=== PATIENT | male | born 1960 | race Caucasian/White ===

== ENCOUNTER 2019-06-29 10:16 | Outpatient (CLI) | payer OTHER ==
[2019-06-29 11:00] LABS: BASOPHILS % (AUTO) 0.7 % (0-1); CLARITY,URINE CLEAR (Clear); COLOR,URINE YELLOW (Yellow); EOSINOPHILS # (AUTO) 0.1 X10'3 (0-0.9); EOSINOPHILS % (AUTO) 1.9 % (0-6); GLUCOSE, URINE NEGATIVE (Neg); HEMATOCRIT 47.3 % (42.0-52.0); HEMOGLOBIN 15.6 g/dl (14.0-17.9); KETONES,URINE NEGATIVE (Neg); LEUKOCYTE ESTERASE ,URINE NEGATIVE (Neg); LYMPHOCYTES # (AUTO) 1.5 X10'3 (1.1-4.8); LYMPHOCYTES % (AUTO) 26.1 % (21-51); MEAN CORPUSCULAR HEMOGLOBIN 28.9 PG (27.0-31.0); MEAN CORPUSCULAR VOLUME 87.3 FL (78-98); MEAN PLATELET VOLUME 8.3 FL (7.4-10.4); MONOCYTES # (AUTO) 0.5 X10'3 (0-0.9); NEUTROPHILS # (AUTO) 3.7 X10'3 (1.8-7.7); NEUTROPHILS % (AUTO) 63.3 % (42-75); NITRITES, URINE NEGATIVE (Neg); OCCULT BLOOD,URINE NEGATIVE (Neg); PH,URINE 6.5 (4.8-8.0); PLATELET COUNT 243 X10'3 (140-440); PROTEIN,URINE NEGATIVE (Neg); RED BLOOD COUNT 5.42 X10'6 (4.70-6.10); RED CELL DISTRIBUTION WIDTH 14.3 % (11.5-14.5); UROBILINOGEN,URINE 0.2 E.U/dL (0.2-1.0); WHITE BLOOD COUNT 5.9 X10'3 (4.5-11.0)
[2019-06-29 11:06] LABS: UA COLLECTION TYPE CLN CATCH MIDSTREAM
[2019-06-29 11:18] LABS: ALANINE AMINOTRANSFERASE 42 U/L (12-78); ALBUMIN/GLOBULIN RATIO 1.1 (1.1-1.5); ALKALINE PHOSPHATASE 48 IU/L (46-116); ANION GAP 6 (8-16); ASPARTATE AMINO TRANSFERASE 32 U/L (10-37); BILIRUBIN,TOTAL 0.8 MG/DL (0.1-1.0); BLOOD UREA NITROGEN 33 MG/DL (7-18); BUN/CREATININE RATIO 15.6 (5.4-32.0); CALCIUM 9.3 MG/DL (8.5-10.1); CHLORIDE 106 MMOL/L (99-107); CHOL/HDL RATIO 7.5 (0.00-4.99); CHOLESTEROL 210 MG/DL (0-200); CREATININE 2.11 MG/DL (0.60-1.10); GLUCOSE 107 MG/DL (70-104); HDL CHOLESTEROL 28 MG/DL (35-60); LDL CHOLESTEROL 129 MG/DL (50-100); SODIUM 143 MMOL/L (135-145); TOTAL CARBON DIOXIDE 30.6 MMOL/L (24-32); TOTAL PROTEIN 7.7 G/DL (6.4-8.2); TRIGLYCERIDES 251 MG/DL (20-135); eGFR 32 ML/MIN
[2019-06-30 08:08] LABS: % FREE PSA 35.6 % (.); PSA, FREE 0.32 ng/mL
== END 2019-06-29 23:00 | disposition home or self-care (01) ==
LOC: LAB 10:16
PROVIDERS: ATTEND Family Medicine
DX: Z12.5 Encounter for screening for malignant neoplasm of prostate (principal); E78.1 Pure hyperglyceridemia; J30.2 Other seasonal allergic rhinitis; G47.30 Sleep apnea, unspecified; G47.62 Sleep related leg cramps; I10 Essential (primary) hypertension; N20.0 Calculus of kidney; H04.123 Dry eye syndrome of bilateral lacrimal glands; Z68.34 Body mass index [BMI] 34.0-34.9, adult
CPT/HCPCS: 36415; 80053; 80061; 81003; 84153; 84154; 84439; 84443; 85025

== ENCOUNTER 2019-07-13 09:41 | Outpatient (CLI) | payer OTHER ==
[2019-07-13 10:38] LABS: ALANINE AMINOTRANSFERASE 38 U/L (12-78); ALBUMIN 3.9 G/DL (3.4-5.0); ALBUMIN/GLOBULIN RATIO 1.1 (1.1-1.5); ALKALINE PHOSPHATASE 45 IU/L (46-116); ANION GAP 6 (8-16); ASPARTATE AMINO TRANSFERASE 31 U/L (10-37); BILIRUBIN,TOTAL 0.7 MG/DL (0.1-1.0); BLOOD UREA NITROGEN 34 MG/DL (7-18); CALCIUM 8.9 MG/DL (8.5-10.1); CHLORIDE 103 MMOL/L (99-107); CREATININE 2.13 MG/DL (0.60-1.10); GLUCOSE 91 MG/DL (70-104); POTASSIUM 3.6 MMOL/L (3.5-5.1); SODIUM 139 MMOL/L (135-145); TOTAL CARBON DIOXIDE 30.2 MMOL/L (24-32); TOTAL PROTEIN 7.3 G/DL (6.4-8.2); eGFR 32 ML/MIN
[2019-07-13 10:41] LABS: HEMOGLOBIN A1C 5.8 % (4.5-6.2)
[2019-07-13 10:58] LABS: TOTAL PROTEIN,URINE RANDOM < 6.0 MG/DL
== END 2019-07-13 23:59 | disposition home or self-care (01) ==
LOC: LAB 09:41
PROVIDERS: ATTEND Family Medicine
DX: E78.1 Pure hyperglyceridemia (principal); R79.89 Other specified abnormal findings of blood chemistry; R73.09 Other abnormal glucose
CPT/HCPCS: 36415; 80053; 82570; 83036; 84156

== ENCOUNTER 2019-08-11 16:17 | Emergency (ER) | payer OTHER ==
[~2019-08-11] VITALS: Ht 180.3 cm; Wt 113.6 kg
[2019-08-11 16:19] VITALS: BP 163/103
[2019-08-11] MEDS ORDERED: ibuprofen tablet 400 MG TABLET PO ONE (16:50)
== END 2019-08-11 17:06 | disposition home or self-care (01) ==
LOC: ER 16:17
DX: S20.211A Contusion of right front wall of thorax, initial encounter (principal); Z88.8 Allergy status to other drugs, medicaments and biological substances; Y00.XXXA Assault by blunt object, initial encounter; Y93.89 Activity, other specified; Y92.69 Other specified industrial and construction area as the place of occurrence of the external cause; Y99.9 Unspecified external cause status
CPT/HCPCS: 99282

== ENCOUNTER 2019-08-19 21:35 | Emergency (ER) | payer OTHER ==
[~2019-08-19] VITALS: Ht 180.3 cm; Wt 113.6 kg
[2019-08-19 21:37] VITALS: BP 174/95
[2019-08-19] MEDS ORDERED: acetaminophen 325mg tablet PO ONE (21:55)
== END 2019-08-19 22:01 | disposition home or self-care (01) ==
LOC: ER 21:35
DX: S43.402A Unspecified sprain of left shoulder joint, initial encounter (principal); X58.XXXA Exposure to other specified factors, initial encounter; Y93.89 Activity, other specified; Y92.89 Other specified places as the place of occurrence of the external cause; Y99.8 Other external cause status
CPT/HCPCS: 99282; 99285

== ENCOUNTER 2019-08-31 23:05 | Emergency (ER) | payer BC, OTHER ==
[~2019-08-31] VITALS: Ht 180.3 cm; Wt 113.6 kg
[2019-09-01] MEDS ORDERED: DOXY100C43 PO (00:09)
[2019-09-01 00:15] VITALS: BP 133/80
== END 2019-09-01 00:44 | disposition home or self-care (01) ==
LOC: ER 23:05
DX: L03.818 Cellulitis of other sites (principal); L97.819 Non-pressure chronic ulcer of other part of right lower leg with unspecified severity; R60.0 Localized edema; E78.00 Pure hypercholesterolemia, unspecified; Z86.718 Personal history of other venous thrombosis and embolism; Z79.2 Long term (current) use of antibiotics
CPT/HCPCS: 99283

== ENCOUNTER 2019-10-03 12:26 | Inpatient (IN) | payer BC, OTHER ==
[~2019-10-03] VITALS: Ht 180.3 cm; Wt 118.4 kg
--- NOTE | 2019-10-03 12:42 | NUR ---
pt has a healing ulcer on the posterior right calf
[2019-10-03 13:09] LABS: BASOPHILS # (AUTO) 0.1 X10'3 (0-0.2); BASOPHILS % (AUTO) 0.6 % (0-1); EOSINOPHILS # (AUTO) 0.1 X10'3 (0-0.9); HEMATOCRIT 46.7 % (42.0-52.0); HEMOGLOBIN 15.3 g/dl (14.0-17.9); LYMPHOCYTES # (AUTO) 2.3 X10'3 (1.1-4.8); LYMPHOCYTES % (AUTO) 25.5 % (21-51); MEAN CORPUSCULAR HGB CONC 32.7 g/dL (33.0-36.5); MEAN CORPUSCULAR VOLUME 88.6 FL (78-98); MEAN PLATELET VOLUME 8.6 FL (7.4-10.4); MONOCYTES % (AUTO) 11.5 % (2-12); NEUTROPHILS # (AUTO) 5.6 X10'3 (1.8-7.7); NEUTROPHILS % (AUTO) 61.4 % (42-75); PLATELET COUNT 265 X10'3 (140-440); RED BLOOD COUNT 5.27 X10'6 (4.70-6.10); RED CELL DISTRIBUTION WIDTH 14.9 % (11.5-14.5); WHITE BLOOD COUNT 9.1 X10'3 (4.5-11.0)
[2019-10-03 13:15] LABS: ALANINE AMINOTRANSFERASE 99 U/L (12-78); ALKALINE PHOSPHATASE 50 IU/L (46-116); ANION GAP 13 (8-16); ASPARTATE AMINO TRANSFERASE 77 U/L (10-37); BILIRUBIN,TOTAL 0.8 MG/DL (0.1-1.0); BLOOD UREA NITROGEN 30 MG/DL (7-18); CALCIUM 8.7 MG/DL (8.5-10.1); CHLORIDE 106 MMOL/L (99-107); GLUCOSE 170 MG/DL (70-104); POTASSIUM 4.1 MMOL/L (3.5-5.1); SODIUM 142 MMOL/L (135-145); TOTAL CARBON DIOXIDE 23.3 MMOL/L (24-32); eGFR 27 ML/MIN
[2019-10-03] MEDS ORDERED: aspirin 81mg tab.chew PO ONE (14:30)
[2019-10-03] MEDS ORDERED: enoxaparin 100mg/ml syringe SUBCUT ONE (14:50)
[2019-10-03] MEDS ORDERED: heparin 25,000 UNIT/250ml bag 250 ML IV SCH (14:52)
[2019-10-03] MEDS ORDERED: heparin 10,000 units/1 ML INJ IV ONE (14:55)
[2019-10-03] MEDS ORDERED: heparin 10,000 units/1 ML INJ IV PRN (14:55)
[2019-10-03] MEDS ORDERED: mag hydrox/Alum hydrox/simeth 30ml oral suspension PO PRN (15:05)
[2019-10-03] MEDS ORDERED: acetaminophen 325mg tablet PO PRN ×2 (15:05)
[2019-10-03] MEDS ORDERED: HYDROcodone/acetaminophen 5mg/325mg tablet PO PRN (15:05)
[2019-10-03] MEDS ORDERED: morphine 2 MG/ML inj. syringe IV PRN ×2 (15:05)
[2019-10-03] MEDS ORDERED: ondansetron/PF 4mg/2ml inj IV PRN (15:05)
[2019-10-03] MEDS ORDERED: magnesium hydroxide 30ml (MOM) UD suspension PO PRN (15:05)
[2019-10-03 15:07] LABS: PARTIAL THROMBOPLASTIN TIME 31 SECONDS (22-32)
--- NOTE | 2019-10-03 15:12 | NUR ---
Pt transported to Scan via [facility] with [employer].
[2019-10-03] MEDS ORDERED: CETI10TA18 PO (15:20)
[2019-10-03] MEDS ORDERED: FENO145T25 PO (15:20)
[2019-10-03] MEDS ORDERED: ASPI-109 PO (15:20)
[2019-10-03] MEDS ORDERED: OLOP2.5D6 EACHEYE (15:20)
[2019-10-03] MEDS ORDERED: FURO40TA4 PO (15:20)
[2019-10-03] MEDS ORDERED: OLME1TAB84 PO (15:20)
[2019-10-03] MEDS ORDERED: LABE300T2 PO (15:20)
[2019-10-03] MEDS ORDERED: OMEG-79 PO (15:20)
--- NOTE | 2019-10-03 16:34 | NUR ---
informed Dr. Avery of poss PE. offically report is pending. heparin was dc before given and Bennie is aware.
[2019-10-03 16:46] LABS: BASOPHILS # (AUTO) 0.1 X10'3 (0-0.2); BASOPHILS % (AUTO) 0.6 % (0-1); EOSINOPHILS % (AUTO) 0.3 % (0-6); HEMATOCRIT 41.7 % (42.0-52.0); LYMPHOCYTES # (AUTO) 1.9 X10'3 (1.1-4.8); LYMPHOCYTES % (AUTO) 22.9 % (21-51); MEAN CORPUSCULAR HEMOGLOBIN 29.7 PG (27.0-31.0); MEAN CORPUSCULAR HGB CONC 33.6 g/dL (33.0-36.5); MEAN CORPUSCULAR VOLUME 88.2 FL (78-98); MEAN PLATELET VOLUME 8.1 FL (7.4-10.4); MONOCYTES # (AUTO) 0.6 X10'3 (0-0.9); NEUTROPHILS # (AUTO) 5.8 X10'3 (1.8-7.7); NEUTROPHILS % (AUTO) 69.2 % (42-75); PLATELET COUNT 232 X10'3 (140-440); RED BLOOD COUNT 4.72 X10'6 (4.70-6.10); RED CELL DISTRIBUTION WIDTH 14.7 % (11.5-14.5); WHITE BLOOD COUNT 8.4 X10'3 (4.5-11.0)
[2019-10-03] MEDS: apixaban 5mg tablet PO SCH (17:04)
--- NOTE | 2019-10-03 19:30 | NUR ---
Patient in room PCU 3020. I have received report from PRODUCTION SUPPLY EQUIPMENT TENDER and had the opportunity to ask questions and assume patient care.
[2019-10-03 19:50] VITALS: BP 134/90
[2019-10-03 23:00] VITALS: BP 123/89
[2019-10-04 02:21] LABS: BASOPHILS # (AUTO) 0.1 X10'3 (0-0.2); BASOPHILS % (AUTO) 0.8 % (0-1); EOSINOPHILS # (AUTO) 0.1 X10'3 (0-0.9); HEMOGLOBIN 13.9 g/dl (14.0-17.9); LYMPHOCYTES # (AUTO) 2.4 X10'3 (1.1-4.8); LYMPHOCYTES % (AUTO) 29.6 % (21-51); MEAN CORPUSCULAR HEMOGLOBIN 29.6 PG (27.0-31.0); MEAN CORPUSCULAR HGB CONC 33.8 g/dL (33.0-36.5); MEAN CORPUSCULAR VOLUME 87.8 FL (78-98); MEAN PLATELET VOLUME 8.2 FL (7.4-10.4); MONOCYTES # (AUTO) 0.8 X10'3 (0-0.9); MONOCYTES % (AUTO) 9.6 % (2-12); NEUTROPHILS # (AUTO) 4.8 X10'3 (1.8-7.7); PLATELET COUNT 247 X10'3 (140-440); RED BLOOD COUNT 4.67 X10'6 (4.70-6.10); RED CELL DISTRIBUTION WIDTH 14.3 % (11.5-14.5); WHITE BLOOD COUNT 8.1 X10'3 (4.5-11.0)
[2019-10-04 02:39] LABS: ALBUMIN 3.2 G/DL (3.4-5.0); ANION GAP 8 (8-16); BLOOD UREA NITROGEN 32 MG/DL (7-18); BUN/CREATININE RATIO 13.7 (5.4-32.0); CALCIUM 7.8 MG/DL (8.5-10.1); CHLORIDE 108 MMOL/L (99-107); CHOL/HDL RATIO 8.2 (0.00-4.99); CHOLESTEROL 164 MG/DL (0-200); CREATININE 2.33 MG/DL (0.60-1.10); GLUCOSE 120 MG/DL (70-104); HDL CHOLESTEROL 20 MG/DL (35-60); LDL CHOLESTEROL 106 MG/DL (50-100); POTASSIUM 3.6 MMOL/L (3.5-5.1); SODIUM 140 MMOL/L (135-145); TOTAL CARBON DIOXIDE 24.4 MMOL/L (24-32); TRIGLYCERIDES 225 MG/DL (20-135); eGFR 29 ML/MIN
[2019-10-04 02:41] LABS: HEMOGLOBIN A1C 6.3 % (4.5-6.2)
[2019-10-04 03:00] VITALS: BP 115/72
[2019-10-04 06:00] VITALS: BP 147/77
--- NOTE | 2019-10-04 06:10 | NUR ---
Patient in room PCU 3023. I have received report from Herman CARPENTER and had the opportunity to ask questions and assume patient care.
--- NOTE | 2019-10-04 06:14 | NUR ---
Problems reprioritized. Patient report given, questions answered & plan of care reviewed with Osvaldo CARPENTER.
--- NOTE | 2019-10-04 06:16 | NUR ---
Patient in room PCU 3023. I have received report from Herman CARPENTER and had the opportunity to ask questions and assume patient care.
[2019-10-04] MEDS: apixaban 5mg tablet PO SCH ×2 (08:15→20:22)
[2019-10-04] MEDS: furosemide 20 MG/2 ML vial IV SCH ×2 (08:15→20:22)
[2019-10-04 11:00] VITALS: BP 117/78
--- NOTE | 2019-10-04 14:43 | NUR ---
Paged Dr. Avery of [facility] ultrasound result recently obtained. [id number]. Omar Saenz. [facility] Ultrasound result. DVT present. Thank you. Reymundo CARPENTER x [phone]
[2019-10-04 15:00] VITALS: BP 126/78
--- NOTE | 2019-10-04 18:00 | NUR ---
Orientee documentation: I have reviewed and agree with all interventions, assessments performed and documented by Reymundo Landry RN.
--- NOTE | 2019-10-04 18:15 | NUR ---
Problems reprioritized. Patient report given, questions answered & plan of care reviewed with Herman RN.
--- NOTE | 2019-10-04 18:15 | NUR ---
Problems reprioritized. Patient report given, questions answered & plan of care reviewed with Herman RN.
[2019-10-04 19:00] VITALS: BP 131/88
[2019-10-04 23:07] VITALS: BP 136/91
[2019-10-05] VITALS (11 sets, daily range): BP systolic 120–148; BP diastolic 75–96
[2019-10-05 05:27] LABS: BASOPHILS # (AUTO) 0.1 X10'3 (0-0.2); BASOPHILS % (AUTO) 0.7 % (0-1); EOSINOPHILS # (AUTO) 0.1 X10'3 (0-0.9); EOSINOPHILS % (AUTO) 0.7 % (0-6); HEMATOCRIT 41.9 % (42.0-52.0); LYMPHOCYTES # (AUTO) 2.5 X10'3 (1.1-4.8); LYMPHOCYTES % (AUTO) 23.4 % (21-51); MEAN CORPUSCULAR HEMOGLOBIN 29.3 PG (27.0-31.0); MEAN CORPUSCULAR HGB CONC 33.5 g/dL (33.0-36.5); MEAN CORPUSCULAR VOLUME 87.5 FL (78-98); MEAN PLATELET VOLUME 8.8 FL (7.4-10.4); MONOCYTES # (AUTO) 0.9 X10'3 (0-0.9); NEUTROPHILS % (AUTO) 66.2 % (42-75); PLATELET COUNT 265 X10'3 (140-440); RED BLOOD COUNT 4.79 X10'6 (4.70-6.10); RED CELL DISTRIBUTION WIDTH 14.3 % (11.5-14.5); WHITE BLOOD COUNT 10.5 X10'3 (4.5-11.0)
[2019-10-05 05:43] LABS: ALBUMIN 3.3 G/DL (3.4-5.0); ANION GAP 10 (8-16); BLOOD UREA NITROGEN 32 MG/DL (7-18); BUN/CREATININE RATIO 13.2 (5.4-32.0); CHLORIDE 104 MMOL/L (99-107); CREATININE 2.42 MG/DL (0.60-1.10); GLUCOSE 112 MG/DL (70-104); POTASSIUM 3.8 MMOL/L (3.5-5.1); SODIUM 140 MMOL/L (135-145); TOTAL CARBON DIOXIDE 26.2 MMOL/L (24-32); eGFR 28 ML/MIN
--- NOTE | 2019-10-05 06:20 | NUR ---
Patient in room PCU 3023. I have received report from Herman CARPENTER and had the opportunity to ask questions and assume patient care.
--- NOTE | 2019-10-05 06:27 | NUR ---
Problems reprioritized. Patient report given, questions answered & plan of care reviewed with Osvaldo CARPENTER.
--- NOTE | 2019-10-05 06:35 | NUR ---
Patient in room PCU 3023. I have received report from JANE CARPENTER and had the opportunity to ask questions and assume patient care.
[2019-10-05] MEDS: furosemide 20 MG/2 ML vial IV SCH (08:04)
[2019-10-05] MEDS: apixaban 5mg tablet PO SCH ×2 (08:04→20:34)
[2019-10-05] MEDS ORDERED: ipratropium/albuterol 3ml nebule NEB STA (12:20)
[2019-10-05] MEDS ORDERED: budesonide 0.5mg/2ml UD nebule IH ONE (12:20)
[2019-10-05] MEDS ORDERED: normal saline 1000ml 1,000 ML IV SCH (12:35)
--- NOTE | 2019-10-05 12:54 | NUR ---
Paged Dr. Heard for clarification on NS order. PAGER ID: [phone] MESSAGE: [phone]. Robert. Alexei Nelson for clarification about the NS order. Run the NS @500mL/hr q2hr. Reymundo CARPENTER x [phone] Addendum: 10/05/19 at 1256 by Reymundo Landry RN called back. order clarified.
--- NOTE | 2019-10-05 15:04 | NUR ---
Report called to ICU, Art RN. Allowed ICU nurse to ask questions concerning Pt's care and course/plan of care. Pt's belongings will be transferred with Pt to ICU room: 2046
[2019-10-05] MEDS ORDERED: tPA-cathflo 2mg/2ml IV flush 10 MG in normal saline 100ml IV soln 40 ML ICATH ONE (16:30)
[2019-10-05 16:54] LABS: PLATELET COUNT 272 X10'3 (140-440)
[2019-10-05] MEDS: ipratropium/albuterol 3ml nebule NEB SCH ×2 (16:59→21:06)
[2019-10-05] MEDS ORDERED: ALTEPLASE 100 MG/100 ML IV SCH (17:00)
--- NOTE | 2019-10-05 17:28 | NUR ---
aTP started at 1730. Medication is to run for 24 hours maximum time.
[2019-10-05 17:58] LABS: D-DIMER 2.92 MG/L FEU (0-0.50); PARTIAL THROMBOPLASTIN TIME 30 SECONDS (22-32)
--- NOTE | 2019-10-05 18:15 | NUR ---
Patient in room ICU 2046. I have received report from Art RN and had the opportunity to ask questions and assume patient care. Patient is A&O but a little restless. Tachypneic with O2 in the high 80's-low 90's. Receiving supplemental O2 along with tPA. Will continue to monitor.
[2019-10-05 20:05] LABS: PLATELET COUNT 278 X10'3 (140-440)
[2019-10-05 20:15] LABS: D-DIMER 3.54 MG/L FEU (0-0.50); PARTIAL THROMBOPLASTIN TIME 29 SECONDS (22-32)
[2019-10-05] MEDS: methylPREDNISolone sod succ/PF 40mg inj. IV SCH (20:34)
[2019-10-05] MEDS: HYDROcodone/acetaminophen 10/325mg tab PO PRN (23:13)
[2019-10-05 23:45] LABS: PLATELET COUNT 268 X10'3 (140-440)
[2019-10-05 23:57] LABS: D-DIMER 9.38 MG/L FEU (0-0.50); PARTIAL THROMBOPLASTIN TIME 30 SECONDS (22-32)
[2019-10-06] VITALS (21 sets, daily range): BP systolic 121–154; BP diastolic 74–101
[2019-10-06] MEDS ORDERED: TPA CATHFLO IVF SCH (01:00)
[2019-10-06] MEDS ORDERED: FLUSH 6 MG IVF SCH (01:00)
[2019-10-06] MEDS ORDERED: NORMAL SALINE IVF SCH (01:00)
[2019-10-06 03:53] LABS: BASOPHILS % (AUTO) 0.1 % (0-1); EOSINOPHILS % (AUTO) 0.2 % (0-6); HEMATOCRIT 42.6 % (42.0-52.0); HEMOGLOBIN 14.1 g/dl (14.0-17.9); LYMPHOCYTES # (AUTO) 2.2 X10'3 (1.1-4.8); MEAN CORPUSCULAR HEMOGLOBIN 29.2 PG (27.0-31.0); MEAN CORPUSCULAR HGB CONC 33.1 g/dL (33.0-36.5); MEAN CORPUSCULAR VOLUME 88.2 FL (78-98); MEAN PLATELET VOLUME 9.2 FL (7.4-10.4); MONOCYTES # (AUTO) 0.2 X10'3 (0-0.9); MONOCYTES % (AUTO) 2.1 % (2-12); NEUTROPHILS # (AUTO) 6.6 X10'3 (1.8-7.7); NEUTROPHILS % (AUTO) 73.6 % (42-75); PLATELET COUNT 268 X10'3 (140-440); RED BLOOD COUNT 4.83 X10'6 (4.70-6.10); RED CELL DISTRIBUTION WIDTH 14.9 % (11.5-14.5)
[2019-10-06 03:56] LABS: ALBUMIN 3.1 G/DL (3.4-5.0); ANION GAP 12 (8-16); BLOOD UREA NITROGEN 38 MG/DL (7-18); BUN/CREATININE RATIO 15.7 (5.4-32.0); CALCIUM 7.9 MG/DL (8.5-10.1); CHLORIDE 101 MMOL/L (99-107); CREATININE 2.42 MG/DL (0.60-1.10); GLUCOSE 159 MG/DL (70-104); POTASSIUM 3.8 MMOL/L (3.5-5.1); SODIUM 136 MMOL/L (135-145); TOTAL CARBON DIOXIDE 22.6 MMOL/L (24-32); eGFR 28 ML/MIN
[2019-10-06 04:13] LABS: PARTIAL THROMBOPLASTIN TIME 31 SECONDS (22-32)
[2019-10-06 04:24] LABS: PLATELET COUNT 268 X10'3 (140-440)
[2019-10-06 05:17] LABS: CLARITY,URINE CLEAR (Clear); COLOR,URINE YELLOW (Yellow); GLUCOSE, URINE NEGATIVE (Neg); KETONES,URINE NEGATIVE (Neg); LEUKOCYTE ESTERASE ,URINE NEGATIVE (Neg); NITRITES, URINE NEGATIVE (Neg); OCCULT BLOOD,URINE TRACE-LYSED (Neg); PH,URINE 5.5 (4.8-8.0); PROTEIN,URINE 100 mg/dl (Neg)
[2019-10-06 05:24] LABS: UA COLLECTION TYPE NON-SPECIFIED
[2019-10-06 05:25] LABS: BACTERIA,URINE FEW /HPF (Neg); RBC,URINE 0-2 /HPF (0-2); SQUAMOUS EPITHELIAL CELL,UR FEW /LPF (FEW); WBC,URINE NONE SEEN /HPF (0-4)
[2019-10-06 05:31] LABS: TOTAL PROTEIN,URINE RANDOM 125.1 MG/DL
[2019-10-06 05:50] LABS: UA EOSINOPHILS NO EOS /HPF
[2019-10-06 08:30] LABS: PLATELET COUNT 225 X10'3 (140-440)
[2019-10-06] MEDS: methylPREDNISolone sod succ/PF 40mg inj. IV SCH ×3 (08:43→20:49)
[2019-10-06 08:52] LABS: PARTIAL THROMBOPLASTIN TIME 25 SECONDS (22-32)
[2019-10-06 08:54] LABS: D-DIMER > 35.20 MG/L FEU (0-0.50)
[2019-10-06] MEDS: budesonide 0.5mg/2ml UD nebule IH SCH ×3 (10:17→20:44)
[2019-10-06] MEDS: ipratropium/albuterol 3ml nebule NEB SCH ×3 (10:17→20:43)
[2019-10-06 11:58] LABS: PLATELET COUNT 243 X10'3 (140-440)
[2019-10-06 12:38] LABS: D-DIMER 27.46 MG/L FEU (0-0.50); PARTIAL THROMBOPLASTIN TIME 27 SECONDS (22-32)
[2019-10-06 16:11] LABS: PLATELET COUNT 261 X10'3 (140-440)
[2019-10-06 16:18] LABS: D-DIMER 21.85 MG/L FEU (0-0.50); PARTIAL THROMBOPLASTIN TIME 29 SECONDS (22-32)
[2019-10-06] MEDS ORDERED: tPA-cathflo 2 MG/2 ml IV flush IVF ONE (17:20)
[2019-10-06] MEDS ORDERED: TPA CATHFLO IVF ONE (17:35)
[2019-10-06] MEDS ORDERED: NORMAL SALINE IVF ONE (17:35)
[2019-10-06] MEDS ORDERED: FLUSH 6 MG IVF ONE (17:35)
--- NOTE | 2019-10-06 18:07 | NUR ---
Patient in room ICU 2046. I have received report from Robby CARPENTER and had the opportunity to ask questions and assume patient care.
[2019-10-06 19:40] LABS: D-DIMER 19.58 MG/L FEU (0-0.50); PARTIAL THROMBOPLASTIN TIME 24 SECONDS (22-32)
[2019-10-06 19:45] LABS: PLATELET COUNT 266 X10'3 (140-440)
[2019-10-06 23:35] LABS: PLATELET COUNT 274 X10'3 (140-440)
[2019-10-06 23:50] LABS: PARTIAL THROMBOPLASTIN TIME 24 SECONDS (22-32)
[2019-10-07] VITALS (20 sets, daily range): BP systolic 129–166; BP diastolic 66–109
[2019-10-07 03:47] LABS: BASOPHILS % (AUTO) 0.1 % (0-1); EOSINOPHILS % (AUTO) 0 % (0-6); HEMATOCRIT 40.6 % (42.0-52.0); HEMOGLOBIN 13.3 g/dl (14.0-17.9); LYMPHOCYTES % (AUTO) 17.1 % (21-51); MEAN CORPUSCULAR HEMOGLOBIN 28.9 PG (27.0-31.0); MEAN CORPUSCULAR HGB CONC 32.9 g/dL (33.0-36.5); MEAN CORPUSCULAR VOLUME 87.9 FL (78-98); MONOCYTES # (AUTO) 0.5 X10'3 (0-0.9); MONOCYTES % (AUTO) 3.9 % (2-12); NEUTROPHILS # (AUTO) 9.1 X10'3 (1.8-7.7); NEUTROPHILS % (AUTO) 78.9 % (42-75); PLATELET COUNT 273 X10'3 (140-440); RED BLOOD COUNT 4.62 X10'6 (4.70-6.10); RED CELL DISTRIBUTION WIDTH 14.1 % (11.5-14.5); WHITE BLOOD COUNT 11.6 X10'3 (4.5-11.0)
[2019-10-07 03:51] LABS: PLATELET COUNT 273 X10'3 (140-440)
[2019-10-07 03:56] LABS: ALBUMIN 3.1 G/DL (3.4-5.0); ANION GAP 11 (8-16); BLOOD UREA NITROGEN 37 MG/DL (7-18); BUN/CREATININE RATIO 19.4 (5.4-32.0); CALCIUM 8.2 MG/DL (8.5-10.1); CHLORIDE 102 MMOL/L (99-107); CREATININE 1.91 MG/DL (0.60-1.10); GLUCOSE 207 MG/DL (70-104); POTASSIUM 3.6 MMOL/L (3.5-5.1); SODIUM 136 MMOL/L (135-145); TOTAL CARBON DIOXIDE 23.2 MMOL/L (24-32); eGFR 36 ML/MIN
[2019-10-07 04:00] LABS: D-DIMER 9.67 MG/L FEU (0-0.50); PARTIAL THROMBOPLASTIN TIME 26 SECONDS (22-32)
--- NOTE | 2019-10-07 06:18 | NUR ---
Problems reprioritized. Patient report given, questions answered & plan of care reviewed with Ana CARPENTER.
--- NOTE | 2019-10-07 06:29 | NUR ---
Patient in room ICU 2046. I have received report from Ivan CARPENTER and had the opportunity to ask questions and assume patient care.
[2019-10-07] MEDS: budesonide 0.5mg/2ml UD nebule IH SCH ×3 (08:00→20:48)
[2019-10-07] MEDS: methylPREDNISolone sod succ/PF 40mg inj. IV SCH ×3 (08:51→20:05)
[2019-10-07] MEDS ORDERED: heparin 10,000 units/1 ML INJ IV PRN (09:00)
[2019-10-07] MEDS: HYDROcodone/acetaminophen 10/325mg tab PO PRN (09:10)
[2019-10-07] MEDS: ipratropium/albuterol 3ml nebule NEB SCH ×3 (09:18→20:48)
[2019-10-07] MEDS: heparin 25,000 UNIT/250ml bag 250 ML IV SCH ×3 (09:35→21:37)
--- NOTE | 2019-10-07 16:55 | NUR ---
Patient in room ICU 2046. I have received report from Ana CARPENTER and had the opportunity to ask questions and assume patient care.
--- NOTE | 2019-10-07 18:38 | NUR ---
Problems reprioritized. Patient report given, questions answered & plan of care reviewed with Bhavik CARPENTER.
--- NOTE | 2019-10-07 18:40 | NUR ---
Patient in room PCU 3021. I have received report from JAYDEN PEÑA and had the opportunity to ask questions and assume patient care. PATIENT HAS HEPARIN GTT INFUSING AT 2400 UNITS/HR PER DVT PROTOCOL/ PROVIDER ORDER. PATIENT ON 2L NC. WILL CONTINUE TO MONITOR CLOSELY.
[2019-10-08 03:00] VITALS: BP 125/76
[2019-10-08 03:53] LABS: BASOPHILS % (AUTO) 0.1 % (0-1); EOSINOPHILS % (AUTO) 0 % (0-6); HEMATOCRIT 38.8 % (42.0-52.0); HEMOGLOBIN 12.9 g/dl (14.0-17.9); LYMPHOCYTES # (AUTO) 2.1 X10'3 (1.1-4.8); LYMPHOCYTES % (AUTO) 13.5 % (21-51); MEAN CORPUSCULAR HEMOGLOBIN 29.4 PG (27.0-31.0); MEAN CORPUSCULAR HGB CONC 33.2 g/dL (33.0-36.5); MEAN CORPUSCULAR VOLUME 88.3 FL (78-98); MEAN PLATELET VOLUME 8.9 FL (7.4-10.4); MONOCYTES # (AUTO) 0.7 X10'3 (0-0.9); MONOCYTES % (AUTO) 4.9 % (2-12); NEUTROPHILS # (AUTO) 12.5 X10'3 (1.8-7.7); NEUTROPHILS % (AUTO) 81.5 % (42-75); PLATELET COUNT 283 X10'3 (140-440); RED CELL DISTRIBUTION WIDTH 14.7 % (11.5-14.5); WHITE BLOOD COUNT 15.3 X10'3 (4.5-11.0)
[2019-10-08 04:02] LABS: ALBUMIN 3.1 G/DL (3.4-5.0); ANION GAP 8 (8-16); BLOOD UREA NITROGEN 38 MG/DL (7-18); CALCIUM 8.1 MG/DL (8.5-10.1); CHLORIDE 105 MMOL/L (99-107); GLUCOSE 197 MG/DL (70-104); POTASSIUM 3.8 MMOL/L (3.5-5.1); SODIUM 139 MMOL/L (135-145); TOTAL CARBON DIOXIDE 26.3 MMOL/L (24-32); eGFR 34 ML/MIN
--- NOTE | 2019-10-08 06:25 | NUR ---
Problems reprioritized. Patient report given, questions answered & plan of care reviewed with JAYDEN CURTIS. Addendum: 10/08/19 at 0626 by Christianne Floyd RN Problems reprioritized. Patient report given, questions answered & plan of care reviewed with JAYDEN PEÑA.
--- NOTE | 2019-10-08 06:30 | NUR ---
Patient in room PCU 3021. I have received report from JAYDEN Gutierres and had the opportunity to ask questions and assume patient care.
[2019-10-08 07:00] VITALS: BP 144/75
[2019-10-08] MEDS: methylPREDNISolone sod succ/PF 40mg inj. IV SCH ×3 (08:05→20:46)
[2019-10-08] MEDS: budesonide 0.5mg/2ml UD nebule IH SCH ×2 (08:57→21:56)
[2019-10-08] MEDS: ipratropium/albuterol 3ml nebule NEB SCH ×3 (08:57→21:56)
[2019-10-08] MEDS: heparin 25,000 UNIT/250ml bag 250 ML IV SCH ×4 (09:07→22:30)
--- NOTE | 2019-10-08 10:00 | NUR ---
PTT came back 98. Holding heparin for 60 minutes per protocol. Will decrease rate 2 units/kg/hr per protocol at 1100. Will continue to monitor closely.
[2019-10-08 11:00] VITALS: BP 147/76
[2019-10-08] MEDS: losartan 50mg tablet PO SCH (11:02)
[2019-10-08] MEDS: labetalol 100mg tablet PO SCH ×2 (11:02→20:00)
[2019-10-08] MEDS: HYDROcodone/acetaminophen 10/325mg tab PO PRN (13:08)
--- NOTE | 2019-10-08 13:46 | NUR ---
Initial: Pt admit w/ new DX PE, acute respiratory failure secondary to cor pulmonale, CKD, HTN, prediabetes A1C 6.3. Hx hyperlipidemia TG 225, HDL 20 and possible adverse side effects from anti-hyperlipidemic; to start Tricor 10/08 per EMR. PO mostly 100% avg heart healthy diet; double eggs at breakfast and double meats BIDLD added to meals given protein needs w/ R lower leg venous wound per WOC notes at 116kg. Will continue to monitor. Rec: 1. continue heart healthy diet 2. double eggs at breakfast; double meats BIDLD for wound needs w/ good PO 3. bowel care as needed 4. wt per rx Addendum: 10/08/19 at [address] Amended: Links added.
[2019-10-08 15:00] VITALS: BP 130/69
--- NOTE | 2019-10-08 18:28 | NUR ---
Problems reprioritized. Patient report given, questions answered & plan of care reviewed with JAYDEN Gutierres. Patient stable at transfer of care.
--- NOTE | 2019-10-08 18:30 | NUR ---
Patient in room PCU 3021. I have received report from JAYDEN PEÑA and had the opportunity to ask questions and assume patient care. PATIENT AWAKE FOR BEDSIDE REPORT. HEPARIN INFUSING AT 2100 UNITS/HR. PATIENT ON 3L NC WITH HUMIDIFIER PER PROVIDER ORDER. WILL CONTINUE TO MONITOR CLOSELY.
[2019-10-08 19:00] VITALS: BP 137/70
[2019-10-08 22:36] VITALS: BP 145/69
--- NOTE | 2019-10-09 02:00 | NUR ---
PTT AT 0150 WITH IN THERAPEUTIC RANGE AT 48. NO RATE CHANGE AT THIS TIME. HEPARIN GTT INFUSING AT 2100 UNITS/HR. NEXT DVT PTT AT 0800. WILL CONTINUE TO MONITOR CLOSELY.
[2019-10-09 02:10] VITALS: BP 139/74
--- NOTE | 2019-10-09 05:55 | NUR ---
HR 38. PER MD, WILL HOLD MORNING DOSE OF LABETALOL. DAY TIME HOSPITALIST TO REVIEW MEDICATION DOSING. [employer]LECT[employer] TOP HELPER STRIP PLACED IN CHART.
[2019-10-09 06:30] VITALS: BP 148/81
--- NOTE | 2019-10-09 06:31 | NUR ---
Problems reprioritized. Patient report given, questions answered & plan of care reviewed with JAYDEN BOURGEOIS.
--- NOTE | 2019-10-09 06:38 | NUR ---
Patient in room PCU 3021. I have received report from Bhavik CARPENTER and had the opportunity to ask questions and assume patient care.
[2019-10-09] MEDS ORDERED: fenofibrate 145mg tablet PO SCH (07:30)
[2019-10-09] MEDS ORDERED: OMEGA PO SCH (08:00)
[2019-10-09] MEDS ORDERED: FATTY ACIDS PO SCH (08:00)
[2019-10-09] MEDS ORDERED: FISH OIL PO SCH (08:00)
[2019-10-09] MEDS ORDERED: cetirizine 10mg tablet PO SCH (08:00)
[2019-10-09] MEDS ORDERED: apixaban 5mg tablet PO SCH (08:00)
[2019-10-09] MEDS: budesonide 0.5mg/2ml UD nebule IH SCH (08:06)
[2019-10-09] MEDS: ipratropium/albuterol 3ml nebule NEB SCH ×2 (08:06→15:34)
[2019-10-09] MEDS: losartan 50mg tablet PO SCH (08:09)
[2019-10-09] MEDS: methylPREDNISolone sod succ/PF 40mg inj. IV SCH ×2 (08:09→12:48)
[2019-10-09 08:35] LABS: BASOPHILS % (AUTO) 0.2 % (0-1); EOSINOPHILS % (AUTO) 0.1 % (0-6); HEMATOCRIT 39.4 % (42.0-52.0); HEMOGLOBIN 12.9 g/dl (14.0-17.9); LYMPHOCYTES # (AUTO) 2.7 X10'3 (1.1-4.8); LYMPHOCYTES % (AUTO) 18.7 % (21-51); MEAN CORPUSCULAR HEMOGLOBIN 29.1 PG (27.0-31.0); MEAN CORPUSCULAR HGB CONC 32.7 g/dL (33.0-36.5); MEAN CORPUSCULAR VOLUME 89.1 FL (78-98); MONOCYTES # (AUTO) 0.6 X10'3 (0-0.9); MONOCYTES % (AUTO) 4.5 % (2-12); NEUTROPHILS # (AUTO) 10.9 X10'3 (1.8-7.7); NEUTROPHILS % (AUTO) 76.5 % (42-75); PLATELET COUNT 304 X10'3 (140-440); RED BLOOD COUNT 4.42 X10'6 (4.70-6.10); RED CELL DISTRIBUTION WIDTH 14.7 % (11.5-14.5); WHITE BLOOD COUNT 14.2 X10'3 (4.5-11.0)
[2019-10-09 08:43] LABS: ALANINE AMINOTRANSFERASE 133 U/L (12-78); ALBUMIN/GLOBULIN RATIO 0.9 (1.1-1.5); ALKALINE PHOSPHATASE 43 IU/L (46-116); ANION GAP 2 (8-16); ASPARTATE AMINO TRANSFERASE 31 U/L (10-37); BILIRUBIN,TOTAL 0.6 MG/DL (0.1-1.0); BLOOD UREA NITROGEN 33 MG/DL (7-18); BUN/CREATININE RATIO 16.7 (5.4-32.0); CALCIUM 8.3 MG/DL (8.5-10.1); CHLORIDE 107 MMOL/L (99-107); CREATININE 1.98 MG/DL (0.60-1.10); GLUCOSE 162 MG/DL (70-104); POTASSIUM 4.4 MMOL/L (3.5-5.1); SODIUM 140 MMOL/L (135-145); TOTAL CARBON DIOXIDE 30.6 MMOL/L (24-32); TOTAL PROTEIN 6.2 G/DL (6.4-8.2); eGFR 35 ML/MIN
[2019-10-09 11:00] VITALS: BP 144/81
--- NOTE | 2019-10-09 11:12 | NUR ---
O2 Sat at rest on room air:_88__% If below 89%: Recovery O2 Sat at rest on _2__LPM:_95__%:___% via__nasal cannula (mask/nasal cannula, etc..) No further documentation is necessary. If O2 Sat did not drop below 89% on room air,ambulate patient on room air. O2 Sat while ambulating on room air:___% Recovery O2 Sat while ambulating on ___LPM:___% No further documentation is necessary. If patient does not drop below 89% while ambulating, he/she does not qualify for home O2.
[2019-10-09 15:00] VITALS: BP 145/78
[2019-10-09] MEDS ORDERED: APIX5TAB3 PO (15:05)
[2019-10-09] MEDS ORDERED: OLME40TA13 PO (15:05)
[2019-10-09] MEDS ORDERED: PRED20TA PO (15:05)
--- NOTE | 2019-10-09 17:37 | NUR ---
Per MD, patient stable for discharge home. Patient qualified for home O2 and O2 delivered to patient. Patient educated to make followup appt with Dr Dean Inman in 3 months, office phone number given to patient. Wound care and wound care pictures done prior to discharge and patient given extra optifoams and cleanser for leg wound. Patient notified me at 1645 that he had received a text earlier in the day from his pharmacy that they were waiting for insurance to approve his new prescriptions. Since I was unaware of this earlier in the day, unable to reach out to case management while they were still here to address possible med insurance issues. Spoke to rn hemodialysis charge and told patient that if he does have issues at the pharmacy to please call us so that we can get case management involved right away in the morning in order to get him his medications. IV removed with catheter intact and tele monitor returned to [email or web address]. All belongings sent with patient. Patient escorted from hospital via wheelchair accompanied by unit staff and driven home via private vehicle.
== END 2019-10-09 17:34 | disposition home or self-care (01) | DRG 175 ==
LOC: ER 12:27 → ED HOLD 15:03 → EEVIPCON 15:03 → PCU 3S 18:50 → ICU 2S 10-05 15:30 → PCU 3S 10-07 17:05
PROVIDERS: ADMIT Internal Medicine; ATTEND Internal Medicine
PROC: CB121ZZ Planar Nuclear Medicine Imaging of Lungs and Bronchi using Technetium 99m (Tc-99m) (ICD-10-PCS; principal; 2019-10-03)
DX: I26.09 Other pulmonary embolism with acute cor pulmonale (principal); J96.01 Acute respiratory failure with hypoxia; I21.A1 Myocardial infarction type 2; N17.9 Acute kidney failure, unspecified; N18.4 Chronic kidney disease, stage 4 (severe); I82.431 Acute embolism and thrombosis of right popliteal vein; I27.20 Pulmonary hypertension, unspecified; E78.5 Hyperlipidemia, unspecified; E78.00 Pure hypercholesterolemia, unspecified; R73.03 Prediabetes; I12.9 Hypertensive chronic kidney disease with stage 1 through stage 4 chronic kidney disease, or unspecified chronic kidney disease; I95.9 Hypotension, unspecified; R55 Syncope and collapse; R74.0 Nonspecific elevation of levels of transaminase and lactic acid dehydrogenase [LDH]; Z79.899 Other long term (current) drug therapy
CPT/HCPCS: 36415; 70450; 71045; 76775; 76937; 78582; 80048; 80053; 80061; 81001; 82570; 82948; 83036; 83880; 84156; 84300; 84484; 85025; 85379; 85384; 85610; 85730; 87081; 87207; 93005; 93306; 93970; 94640; 94760; 99291; A9539; A9540; G0378; J1644; J1940; J2270; J2920; J2997; J7030; J7626

== ENCOUNTER → 2019-10-17 | Outpatient (CLI) | payer BC ==
[~2019-10-17] MED LIST: APIX5TAB3 PO; CETI10TA18 PO; FENO145T25 PO; OLME40TA13 PO; OLOP2.5D6 EACHEYE; OMEG-79 PO; PRED20TA PO
[2019-10-17 09:25] LABS: BASOPHILS % (AUTO) 0.1 % (0-1); EOSINOPHILS % (AUTO) 0.2 % (0-6); HEMATOCRIT 48.8 % (42.0-52.0); HEMOGLOBIN 15.8 g/dl (14.0-17.9); LYMPHOCYTES # (AUTO) 4.6 X10'3 (1.1-4.8); LYMPHOCYTES % (AUTO) 31.5 % (21-51); MEAN CORPUSCULAR HEMOGLOBIN 29.2 PG (27.0-31.0); MEAN CORPUSCULAR HGB CONC 32.4 g/dL (33.0-36.5); MEAN CORPUSCULAR VOLUME 90.1 FL (78-98); MEAN PLATELET VOLUME 8.1 FL (7.4-10.4); MONOCYTES # (AUTO) 0.8 X10'3 (0-0.9); MONOCYTES % (AUTO) 5.6 % (2-12); NEUTROPHILS # (AUTO) 9.1 X10'3 (1.8-7.7); NEUTROPHILS % (AUTO) 62.6 % (42-75); PLATELET COUNT 341 X10'3 (140-440); RED BLOOD COUNT 5.41 X10'6 (4.70-6.10); RED CELL DISTRIBUTION WIDTH 15.3 % (11.5-14.5); WHITE BLOOD COUNT 14.6 X10'3 (4.5-11.0)
[2019-10-17 09:41] LABS: TOTAL PROTEIN,URINE RANDOM 14.8 MG/DL; UA PROTEIN/CREATININE RATIO 0.08 mg/mg Cr (0-0.16)
[2019-10-17 09:42] LABS: CLARITY,URINE CLEAR (Clear); COLOR,URINE YELLOW (Yellow); GLUCOSE, URINE NEGATIVE (Neg); KETONES,URINE NEGATIVE (Neg); LEUKOCYTE ESTERASE ,URINE NEGATIVE (Neg); NITRITES, URINE NEGATIVE (Neg); OCCULT BLOOD,URINE NEGATIVE (Neg); PROTEIN,URINE NEGATIVE (Neg); UA COLLECTION TYPE NON-SPECIFIED; UROBILINOGEN,URINE 0.2 E.U/dL (0.2-1.0)
[2019-10-17 09:44] LABS: ALANINE AMINOTRANSFERASE 68 U/L (12-78); ALBUMIN 3.3 G/DL (3.4-5.0); ALKALINE PHOSPHATASE 46 IU/L (46-116); ANION GAP 7 (8-16); ASPARTATE AMINO TRANSFERASE 19 U/L (10-37); BLOOD UREA NITROGEN 36 MG/DL (7-18); BUN/CREATININE RATIO 23.1 (5.4-32.0); CALCIUM 8.6 MG/DL (8.5-10.1); CHLORIDE 106 MMOL/L (99-107); CREATININE 1.56 MG/DL (0.60-1.10); GLUCOSE 84 MG/DL (70-104); POTASSIUM 4.4 MMOL/L (3.5-5.1); SODIUM 139 MMOL/L (135-145); TOTAL CARBON DIOXIDE 26.1 MMOL/L (24-32); TOTAL PROTEIN 6.5 G/DL (6.4-8.2); eGFR 46 ML/MIN
== END | disposition home or self-care (01) ==
LOC: LAB 08:37
PROVIDERS: ATTEND Family Medicine
DX: I12.9 Hypertensive chronic kidney disease with stage 1 through stage 4 chronic kidney disease, or unspecified chronic kidney disease (principal); N18.9 Chronic kidney disease, unspecified; I48.91 Unspecified atrial fibrillation; I21.A1 Myocardial infarction type 2; I82.431 Acute embolism and thrombosis of right popliteal vein; I26.99 Other pulmonary embolism without acute cor pulmonale
CPT/HCPCS: 36415; 80053; 81003; 82570; 84156; 85025

== ENCOUNTER 2019-11-20 09:22 | Outpatient (CLI) | payer BC ==
[2019-11-20 10:20] LABS: BASOPHILS % (AUTO) 0.9 % (0-1); EOSINOPHILS # (AUTO) 0.1 X10'3 (0-0.9); EOSINOPHILS % (AUTO) 1.3 % (0-6); HEMATOCRIT 46.3 % (42.0-52.0); HEMOGLOBIN 15.5 g/dl (14.0-17.9); LYMPHOCYTES # (AUTO) 1.4 X10'3 (1.1-4.8); LYMPHOCYTES % (AUTO) 29.7 % (21-51); MEAN CORPUSCULAR HEMOGLOBIN 29.3 PG (27.0-31.0); MEAN CORPUSCULAR HGB CONC 33.4 g/dL (33.0-36.5); MEAN CORPUSCULAR VOLUME 87.7 FL (78-98); MEAN PLATELET VOLUME 7.6 FL (7.4-10.4); MONOCYTES # (AUTO) 0.5 X10'3 (0-0.9); MONOCYTES % (AUTO) 10.8 % (2-12); NEUTROPHILS # (AUTO) 2.7 X10'3 (1.8-7.7); NEUTROPHILS % (AUTO) 57.3 % (42-75); PLATELET COUNT 300 X10'3 (140-440); RED BLOOD COUNT 5.28 X10'6 (4.70-6.10); RED CELL DISTRIBUTION WIDTH 14.7 % (11.5-14.5); WHITE BLOOD COUNT 4.7 X10'3 (4.5-11.0)
[2019-11-20 10:21] LABS: CLARITY,URINE CLEAR (Clear); COLOR,URINE YELLOW (Yellow); GLUCOSE, URINE NEGATIVE (Neg); KETONES,URINE NEGATIVE (Neg); LEUKOCYTE ESTERASE ,URINE NEGATIVE (Neg); NITRITES, URINE NEGATIVE (Neg); OCCULT BLOOD,URINE NEGATIVE (Neg); PROTEIN,URINE NEGATIVE (Neg); UROBILINOGEN,URINE 0.2 E.U/dL (0.2-1.0)
[2019-11-20 10:22] LABS: UA COLLECTION TYPE CLN CATCH MIDSTREAM
[2019-11-20 10:29] LABS: ALBUMIN 3.9 G/DL (3.4-5.0); ANION GAP 7 (8-16); BLOOD UREA NITROGEN 21 MG/DL (7-18); BUN/CREATININE RATIO 11.7 (5.4-32.0); CALCIUM 8.9 MG/DL (8.5-10.1); CHLORIDE 104 MMOL/L (99-107); GLUCOSE 97 MG/DL (70-104); POTASSIUM 3.8 MMOL/L (3.5-5.1); SODIUM 139 MMOL/L (135-145); eGFR 39 ML/MIN
== END 2019-11-20 23:59 | disposition home or self-care (01) ==
LOC: LAB 09:22
PROVIDERS: ATTEND Family Medicine
DX: I82.431 Acute embolism and thrombosis of right popliteal vein (principal); I27.81 Cor pulmonale (chronic); I21.A1 Myocardial infarction type 2; N17.9 Acute kidney failure, unspecified; R53.83 Other fatigue
CPT/HCPCS: 36415; 80048; 81003; 85025

== ENCOUNTER 2019-12-13 08:34 | Outpatient (CLI) | payer BC ==
[2019-12-13 09:11] LABS: ALBUMIN 3.9 G/DL (3.4-5.0); ANION GAP 4 (8-16); BLOOD UREA NITROGEN 22 MG/DL (7-18); BUN/CREATININE RATIO 14.6 (5.4-32.0); CALCIUM 8.7 MG/DL (8.5-10.1); CHLORIDE 106 MMOL/L (99-107); CREATININE 1.51 MG/DL (0.60-1.10); GLUCOSE 98 MG/DL (70-104); POTASSIUM 3.7 MMOL/L (3.5-5.1); SODIUM 140 MMOL/L (135-145); TOTAL CARBON DIOXIDE 29.8 MMOL/L (24-32); eGFR 48 ML/MIN
== END 2019-12-13 23:59 | disposition home or self-care (01) ==
LOC: LAB 08:34
PROVIDERS: ATTEND Family Medicine
DX: I82.431 Acute embolism and thrombosis of right popliteal vein (principal); I26.99 Other pulmonary embolism without acute cor pulmonale
CPT/HCPCS: 36415; 80048

== ENCOUNTER → 2019-12-31 | Outpatient (CLI) | payer BC ==
[2019-12-31 09:54] LABS: ALBUMIN 4.1 G/DL (3.4-5.0); ANION GAP 5 (8-16); BLOOD UREA NITROGEN 24 MG/DL (7-18); BUN/CREATININE RATIO 14.4 (5.4-32.0); CHLORIDE 103 MMOL/L (99-107); CREATININE 1.67 MG/DL (0.60-1.10); GLUCOSE 91 MG/DL (70-104); POTASSIUM 3.6 MMOL/L (3.5-5.1); SODIUM 140 MMOL/L (135-145); TOTAL CARBON DIOXIDE 32.1 MMOL/L (24-32); eGFR 42 ML/MIN
== END | disposition home or self-care (01) ==
LOC: LAB 08:43
PROVIDERS: ATTEND Family Medicine
DX: S81.801A Unspecified open wound, right lower leg, initial encounter (principal); X58.XXXA Exposure to other specified factors, initial encounter; Y93.89 Activity, other specified; Y92.89 Other specified places as the place of occurrence of the external cause; Y99.8 Other external cause status
CPT/HCPCS: 36415; 80048

== ENCOUNTER 2020-01-08 15:43 | Outpatient (CLI) | payer BC ==
[2020-01-14 15:49] LABS: PROTEIN S, FREE 133 % (57-157); PROTEIN S, TOTAL 111 % (60-150)
[2020-01-15 10:48] LABS: ANTITHROMBIN ACTIVITY 83 % (75-135); ANTITHROMBIN ANTIGEN 76 % (72-124)
== END 2020-01-08 23:59 | disposition home or self-care (01) ==
LOC: LAB 15:43 → EEVIPCON 15:43 → LAB 23:59
PROVIDERS: ATTEND Internal Medicine
DX: I26.09 Other pulmonary embolism with acute cor pulmonale (principal)
CPT/HCPCS: 36415; 81479; 83090; 83891; 83894; 83898; 85300; 85301; 85303; 85305; 85306; 85598; 86146; 86147

== ENCOUNTER 2020-01-31 13:46 | Outpatient (CLI) | payer BC | END 2020-01-31 23:59 | disposition home or self-care (01) | LOC: CARD DIAG 13:46 | PROVIDERS: ATTEND Internal Medicine Interventional Cardiology | DX: I08.0 Rheumatic disorders of both mitral and aortic valves (principal); I27.23 Pulmonary hypertension due to lung diseases and hypoxia | CPT/HCPCS: 93306 ==

== ENCOUNTER → 2020-02-01 | Outpatient (CLI) | payer BC | END | disposition home or self-care (01) | LOC: WOUND CARE 09:52 → EDSTATUS 10:00 | PROVIDERS: ATTEND Nurse Practitioner | DX: S81.801A Unspecified open wound, right lower leg, initial encounter (principal); I83.222 Varicose veins of left lower extremity with both ulcer of calf and inflammation; L97.221 Non-pressure chronic ulcer of left calf limited to breakdown of skin; I10 Essential (primary) hypertension; I27.23 Pulmonary hypertension due to lung diseases and hypoxia; I26.09 Other pulmonary embolism with acute cor pulmonale; I08.0 Rheumatic disorders of both mitral and aortic valves; E78.5 Hyperlipidemia, unspecified; X58.XXXA Exposure to other specified factors, initial encounter; Y93.89 Activity, other specified; Y92.096 Garden or yard of other non-institutional residence as the place of occurrence of the external cause; Y99.8 Other external cause status | CPT/HCPCS: G0463 ==

== ENCOUNTER 2020-02-08 07:53 | Outpatient (CLI) | payer BC ==
[2020-02-08] MEDS ORDERED: LIDOcaine 2% 5ml jelly ONE (08:22)
== END 2020-02-08 23:59 | disposition home or self-care (01) ==
LOC: WOUND CARE 07:53 → EDSTATUS 08:00 → WOUND CARE 23:59
PROVIDERS: ATTEND Nurse Practitioner
DX: S81.801D Unspecified open wound, right lower leg, subsequent encounter (principal); I83.222 Varicose veins of left lower extremity with both ulcer of calf and inflammation; L97.221 Non-pressure chronic ulcer of left calf limited to breakdown of skin; I10 Essential (primary) hypertension; I27.23 Pulmonary hypertension due to lung diseases and hypoxia; I26.09 Other pulmonary embolism with acute cor pulmonale; I08.0 Rheumatic disorders of both mitral and aortic valves; E78.5 Hyperlipidemia, unspecified; X58.XXXD Exposure to other specified factors, subsequent encounter
CPT/HCPCS: 93970; G0463

== ENCOUNTER 2020-02-15 08:36 | Outpatient (CLI) | payer BC ==
[2020-02-15] MEDS ORDERED: LIDOcaine 2% 5ml jelly ONE (09:30)
== END 2020-02-15 23:59 | disposition home or self-care (01) ==
LOC: WOUND CARE 08:36 → EDSTATUS 09:00 → WOUND CARE 23:59
PROVIDERS: ATTEND Nurse Practitioner
DX: S81.801D Unspecified open wound, right lower leg, subsequent encounter (principal); I83.222 Varicose veins of left lower extremity with both ulcer of calf and inflammation; L97.221 Non-pressure chronic ulcer of left calf limited to breakdown of skin; I10 Essential (primary) hypertension; E78.5 Hyperlipidemia, unspecified; I27.23 Pulmonary hypertension due to lung diseases and hypoxia; I26.09 Other pulmonary embolism with acute cor pulmonale; I08.0 Rheumatic disorders of both mitral and aortic valves; X58.XXXD Exposure to other specified factors, subsequent encounter
CPT/HCPCS: 97597; 97598

== ENCOUNTER 2020-02-22 08:52 | Emergency (ER) | payer BC ==
[~2020-02-22] VITALS: Ht 180.3 cm; Wt 109.8 kg
[2020-02-22 10:11] VITALS: BP 140/81
== END 2020-02-22 10:34 | disposition home or self-care (01) ==
LOC: ER 08:53
DX: S93.692A Other sprain of left foot, initial encounter (principal); M79.672 Pain in left foot; E78.00 Pure hypercholesterolemia, unspecified; Z86.718 Personal history of other venous thrombosis and embolism; Z79.899 Other long term (current) drug therapy; W18.40XA Slipping, tripping and stumbling without falling, unspecified, initial encounter; Y93.89 Activity, other specified; Y92.89 Other specified places as the place of occurrence of the external cause; Y99.8 Other external cause status
CPT/HCPCS: 73610; 99283

== ENCOUNTER 2020-03-07 09:22 | Outpatient (CLI) | payer BC ==
[2020-03-07] MEDS ORDERED: LIDOcaine 2% 5ml jelly ONE (09:52)
== END 2020-03-07 23:59 | disposition home or self-care (01) ==
LOC: WOUND CARE 09:22
PROVIDERS: ATTEND Nurse Practitioner
DX: S81.801D Unspecified open wound, right lower leg, subsequent encounter (principal); I83.222 Varicose veins of left lower extremity with both ulcer of calf and inflammation; L97.221 Non-pressure chronic ulcer of left calf limited to breakdown of skin; I10 Essential (primary) hypertension; E78.5 Hyperlipidemia, unspecified; I27.23 Pulmonary hypertension due to lung diseases and hypoxia; I26.09 Other pulmonary embolism with acute cor pulmonale; I08.0 Rheumatic disorders of both mitral and aortic valves; X58.XXXD Exposure to other specified factors, subsequent encounter
CPT/HCPCS: 97597

== ENCOUNTER 2020-03-14 08:58 | Outpatient (CLI) | payer BC ==
[2020-03-14] MEDS ORDERED: LIDOcaine 2% 5ml jelly ONE (09:37)
== END 2020-03-14 23:59 | disposition home or self-care (01) ==
LOC: WOUND CARE 08:58
PROVIDERS: ATTEND Nurse Practitioner
DX: S81.801D Unspecified open wound, right lower leg, subsequent encounter (principal); I83.222 Varicose veins of left lower extremity with both ulcer of calf and inflammation; L97.221 Non-pressure chronic ulcer of left calf limited to breakdown of skin; I10 Essential (primary) hypertension; E78.5 Hyperlipidemia, unspecified; I27.23 Pulmonary hypertension due to lung diseases and hypoxia; I26.09 Other pulmonary embolism with acute cor pulmonale; I08.0 Rheumatic disorders of both mitral and aortic valves; X58.XXXD Exposure to other specified factors, subsequent encounter
CPT/HCPCS: G0463

== ENCOUNTER 2020-03-27 14:52 | Outpatient (CLI) | payer BC ==
[2020-03-27 15:36] LABS: CLARITY,URINE CLEAR (Clear); COLOR,URINE STRAW (Yellow); GLUCOSE, URINE NEGATIVE (Neg); KETONES,URINE NEGATIVE (Neg); LEUKOCYTE ESTERASE ,URINE NEGATIVE (Neg); NITRITES, URINE NEGATIVE (Neg); OCCULT BLOOD,URINE NEGATIVE (Neg); PROTEIN,URINE NEGATIVE (Neg); UROBILINOGEN,URINE 0.2 E.U/dL (0.2-1.0)
[2020-03-27 15:39] LABS: UA COLLECTION TYPE CLN CATCH MIDSTREAM
[2020-03-27 15:44] LABS: BASOPHILS # (AUTO) 0.1 X10'3 (0-0.2); EOSINOPHILS # (AUTO) 0.1 X10'3 (0-0.9); EOSINOPHILS % (AUTO) 2.3 % (0-6); HEMATOCRIT 46.4 % (42.0-52.0); HEMOGLOBIN 15.3 g/dl (14.0-17.9); LYMPHOCYTES # (AUTO) 1.6 X10'3 (1.1-4.8); LYMPHOCYTES % (AUTO) 30.1 % (21-51); MEAN CORPUSCULAR HEMOGLOBIN 28.2 PG (27.0-31.0); MEAN CORPUSCULAR HGB CONC 32.9 g/dL (33.0-36.5); MEAN CORPUSCULAR VOLUME 85.6 FL (78-98); MEAN PLATELET VOLUME 7.9 FL (7.4-10.4); MONOCYTES # (AUTO) 0.5 X10'3 (0-0.9); MONOCYTES % (AUTO) 8.9 % (2-12); NEUTROPHILS # (AUTO) 3.1 X10'3 (1.8-7.7); NEUTROPHILS % (AUTO) 57.7 % (42-75); PLATELET COUNT 252 X10'3 (140-440); RED BLOOD COUNT 5.43 X10'6 (4.70-6.10); RED CELL DISTRIBUTION WIDTH 15.2 % (11.5-14.5); WHITE BLOOD COUNT 5.4 X10'3 (4.5-11.0)
[2020-03-27 15:50] LABS: TOTAL PROTEIN,URINE RANDOM < 6.0 MG/DL
[2020-03-27 15:56] LABS: ALANINE AMINOTRANSFERASE 54 U/L (12-78); ALBUMIN/GLOBULIN RATIO 1.1 (1.1-1.5); ALKALINE PHOSPHATASE 65 IU/L (46-116); ANION GAP 7 (8-16); ASPARTATE AMINO TRANSFERASE 36 U/L (10-37); BILIRUBIN,TOTAL 0.6 MG/DL (0.1-1.0); BLOOD UREA NITROGEN 25 MG/DL (7-18); BUN/CREATININE RATIO 14.2 (5.4-32.0); CALCIUM 8.9 MG/DL (8.5-10.1); CHLORIDE 106 MMOL/L (99-107); CREATININE 1.76 MG/DL (0.60-1.10); GLUCOSE 98 MG/DL (70-104); MAGNESIUM 2.3 MG/DL (1.5-2.4); SODIUM 143 MMOL/L (135-145); TOTAL CARBON DIOXIDE 30.4 MMOL/L (24-32); TOTAL PROTEIN 7.5 G/DL (6.4-8.2); eGFR 40 ML/MIN
== END 2020-03-27 23:59 | disposition home or self-care (01) ==
LOC: LAB 14:52
PROVIDERS: ATTEND Internal Medicine Critical Care Medicine
DX: E11.22 Type 2 diabetes mellitus with diabetic chronic kidney disease (principal); N18.9 Chronic kidney disease, unspecified; E11.29 Type 2 diabetes mellitus with other diabetic kidney complication; D63.1 Anemia in chronic kidney disease; N39.0 Urinary tract infection, site not specified; E55.9 Vitamin D deficiency, unspecified; R80.9 Proteinuria, unspecified
CPT/HCPCS: 36415; 80053; 81003; 82306; 82570; 83735; 84100; 84156; 85025; 87088

== ENCOUNTER 2020-07-03 08:14 | Outpatient (CLI) | payer BC ==
[2020-07-03] VITALS (8 sets, daily range): BP systolic 132–151; BP diastolic 74–83
[~2020-07-03] VITALS: Ht 180.3 cm; Wt 111.4 kg
[2020-07-03] MEDS ORDERED: DILT120C94 PO (09:30)
[2020-07-03] MEDS ORDERED: FURO-150 PO (09:30)
[2020-07-03] MEDS ORDERED: nitroGLYCERIN 0.4mg SUBLingual tab SL PRN (09:35)
[2020-07-03] MEDS ORDERED: regadenoson 0.4mg/5ml syringe IV ONE (09:35)
[2020-07-03] MEDS ORDERED: aminophylline 250mg/10ml inj. IV PRN (09:35)
[2020-07-03] MEDS ORDERED: metoprolol tartrate 1mg/ml inj IV PRN (09:35)
== END 2020-07-03 23:59 | disposition home or self-care (01) ==
LOC: RAD 08:14
PROVIDERS: ATTEND Internal Medicine Interventional Cardiology
DX: I21.A1 Myocardial infarction type 2 (principal)
CPT/HCPCS: 78452; 93017; A9500; J0280; J2785

== ENCOUNTER → 2020-08-08 | Outpatient (CLI) | payer BC ==
[~2020-08-08] MED LIST changes: +DILT120C94 PO; +FURO-150 PO; -OLOP2.5D6 EACHEYE; -PRED20TA PO
[2020-08-08 07:05] LABS: CLARITY,URINE CLEAR (Clear); COLOR,URINE STRAW (Yellow); GLUCOSE, URINE NEGATIVE (Neg); KETONES,URINE NEGATIVE (Neg); LEUKOCYTE ESTERASE ,URINE NEGATIVE (Neg); NITRITES, URINE NEGATIVE (Neg); OCCULT BLOOD,URINE NEGATIVE (Neg); PH,URINE 6.5 (4.8-8.0); PROTEIN,URINE NEGATIVE (Neg); UROBILINOGEN,URINE 0.2 E.U/dL (0.2-1.0)
[2020-08-08 07:06] LABS: UA COLLECTION TYPE CLN CATCH MIDSTREAM
[2020-08-08 07:12] LABS: BASOPHILS # (AUTO) 0.1 X10'3 (0-0.2); EOSINOPHILS # (AUTO) 0.1 X10'3 (0-0.9); EOSINOPHILS % (AUTO) 1.9 % (0-6); HEMOGLOBIN 15.4 g/dl (14.0-17.9); LYMPHOCYTES # (AUTO) 1.6 X10'3 (1.1-4.8); LYMPHOCYTES % (AUTO) 32.5 % (21-51); MEAN CORPUSCULAR HEMOGLOBIN 30.2 PG (27.0-31.0); MEAN CORPUSCULAR HGB CONC 33.6 g/dL (33.0-36.5); MEAN PLATELET VOLUME 8.2 FL (7.4-10.4); MONOCYTES # (AUTO) 0.4 X10'3 (0-0.9); NEUTROPHILS # (AUTO) 2.8 X10'3 (1.8-7.7); NEUTROPHILS % (AUTO) 55.6 % (42-75); PLATELET COUNT 243 X10'3 (140-440); RED BLOOD COUNT 5.11 X10'6 (4.70-6.10); RED CELL DISTRIBUTION WIDTH 14.4 % (11.5-14.5)
[2020-08-08 07:52] LABS: HEMOGLOBIN A1C 5.7 % (4.5-6.2)
[2020-08-08 07:56] LABS: ALANINE AMINOTRANSFERASE 44 U/L (12-78); ALBUMIN 3.9 G/DL (3.4-5.0); ALBUMIN/GLOBULIN RATIO 1.3 (1.1-1.5); ALKALINE PHOSPHATASE 65 IU/L (46-116); ANION GAP 9 (8-16); ASPARTATE AMINO TRANSFERASE 29 U/L (10-37); BILIRUBIN,TOTAL 0.8 MG/DL (0.1-1.0); BLOOD UREA NITROGEN 23 MG/DL (7-18); BUN/CREATININE RATIO 13.4 (5.4-32.0); CHLORIDE 106 MMOL/L (99-107); CHOL/HDL RATIO 6.8 (0.00-4.99); CHOLESTEROL 203 MG/DL (0-200); CREATININE 1.72 MG/DL (0.60-1.10); GLUCOSE 89 MG/DL (70-104); HDL CHOLESTEROL 30 MG/DL (35-60); LDL CHOLESTEROL 128 MG/DL (50-100); POTASSIUM 3.7 MMOL/L (3.5-5.1); SODIUM 142 MMOL/L (135-145); TOTAL CARBON DIOXIDE 27.2 MMOL/L (24-32); eGFR 41 ML/MIN
[2020-08-08 07:57] LABS: TRIGLYCERIDES 242 MG/DL (20-135)
== END | disposition home or self-care (01) ==
LOC: LAB 06:33
PROVIDERS: ATTEND Family Medicine
DX: E78.1 Pure hyperglyceridemia (principal); R73.09 Other abnormal glucose; N18.9 Chronic kidney disease, unspecified; R73.03 Prediabetes; D64.9 Anemia, unspecified; R53.83 Other fatigue; E07.9 Disorder of thyroid, unspecified; N30.90 Cystitis, unspecified without hematuria
CPT/HCPCS: 36415; 80053; 80061; 81003; 83036; 84439; 84443; 85025

== ENCOUNTER 2020-08-14 12:14 | Outpatient (CLI) | payer BC | END 2020-08-14 23:59 | disposition home or self-care (01) | LOC: CARD DIAG 12:14 | PROVIDERS: ATTEND Internal Medicine Interventional Cardiology | DX: I08.0 Rheumatic disorders of both mitral and aortic valves (principal) | CPT/HCPCS: 93306 ==

== ENCOUNTER → 2020-11-28 | Outpatient (CLI) | payer BC | END | disposition home or self-care (01) | LOC: LAB 15:10 | PROVIDERS: ATTEND Family Medicine | DX: E78.5 Hyperlipidemia, unspecified (principal) ==

== ENCOUNTER 2020-12-11 09:21 | Outpatient (CLI) | payer BC ==
[2020-12-11 10:32] LABS: ALBUMIN 3.9 G/DL (3.4-5.0); ANION GAP 10 (8-16); BLOOD UREA NITROGEN 26 MG/DL (7-18); BUN/CREATININE RATIO 15.1 (5.4-32.0); CALCIUM 9.1 MG/DL (8.5-10.1); CHLORIDE 108 MMOL/L (99-107); CHOL/HDL RATIO 7.4 (0.00-4.99); CHOLESTEROL 228 MG/DL (0-200); CREATININE 1.72 MG/DL (0.60-1.10); GLUCOSE 98 MG/DL (70-104); HDL CHOLESTEROL 31 MG/DL (35-60); LDL CHOLESTEROL 124 MG/DL (50-100); POTASSIUM 3.8 MMOL/L (3.5-5.1); SODIUM 145 MMOL/L (135-145); TOTAL CARBON DIOXIDE 26.6 MMOL/L (24-32); TRIGLYCERIDES 265 MG/DL (20-135); eGFR 41 ML/MIN
== END 2020-12-11 23:59 | disposition home or self-care (01) ==
LOC: LAB 09:21
PROVIDERS: ATTEND Family Medicine
DX: E78.5 Hyperlipidemia, unspecified (principal); N18.9 Chronic kidney disease, unspecified
CPT/HCPCS: 36415; 80048; 80061

== ENCOUNTER 2021-01-14 07:09 | Outpatient (CLI) | payer BC | END 2021-01-14 23:59 | disposition home or self-care (01) | LOC: RT 07:09 | PROVIDERS: ATTEND Internal Medicine Critical Care Medicine | DX: R94.2 Abnormal results of pulmonary function studies (principal) | CPT/HCPCS: 94010; 94727; 94729 ==

== ENCOUNTER → 2021-03-25 | Outpatient (CLI) | payer BC ==
[~2021-03-25] MED LIST changes: -CETI10TA18 PO; +CETI10TA19 PO
[2021-03-25 15:58] LABS: BASOPHILS % (AUTO) 0.7 % (0-1); EOSINOPHILS # (AUTO) 0.1 X10'3 (0-0.9); HEMATOCRIT 45.5 % (42.0-52.0); HEMOGLOBIN 15.8 g/dl (14.0-17.9); LYMPHOCYTES % (AUTO) 33.6 % (21-51); MEAN CORPUSCULAR HEMOGLOBIN 30.4 PG (27.0-31.0); MEAN CORPUSCULAR HGB CONC 34.7 g/dL (33.0-36.5); MEAN CORPUSCULAR VOLUME 87.5 FL (78-98); MEAN PLATELET VOLUME 8.5 FL (7.4-10.4); MONOCYTES # (AUTO) 0.5 X10'3 (0-0.9); MONOCYTES % (AUTO) 8.9 % (2-12); NEUTROPHILS # (AUTO) 3.3 X10'3 (1.8-7.7); NEUTROPHILS % (AUTO) 55.8 % (42-75); PLATELET COUNT 226 X10'3 (140-440); RED CELL DISTRIBUTION WIDTH 14.5 % (11.5-14.5)
[2021-03-25 16:10] LABS: ALANINE AMINOTRANSFERASE 44 U/L (12-78); ALBUMIN 3.8 G/DL (3.4-5.0); ALBUMIN/GLOBULIN RATIO 1.1 (1.1-1.5); ALKALINE PHOSPHATASE 77 IU/L (46-116); ANION GAP 6 (8-16); ASPARTATE AMINO TRANSFERASE 25 U/L (10-37); BILIRUBIN,TOTAL 0.5 MG/DL (0.1-1.0); BLOOD UREA NITROGEN 29 MG/DL (7-18); BUN/CREATININE RATIO 16.8 (5.4-32.0); CALCIUM 9.2 MG/DL (8.5-10.1); CHLORIDE 110 MMOL/L (99-107); CREATININE 1.73 MG/DL (0.60-1.10); GLUCOSE 126 MG/DL (70-104); MAGNESIUM 2.3 MG/DL (1.5-2.4); PHOSPHORUS 3.2 MG/DL (2.3-4.5); POTASSIUM 3.8 MMOL/L (3.5-5.1); SODIUM 145 MMOL/L (135-145); TOTAL PROTEIN 7.2 G/DL (6.4-8.2); eGFR 40 ML/MIN
[2021-03-25 16:17] LABS: TOTAL PROTEIN,URINE RANDOM 17.4 MG/DL; UA PROTEIN/CREATININE RATIO 0.49 mg/mg Cr (0-0.16)
[2021-03-25 16:19] LABS: CLARITY,URINE CLEAR (Clear); COLOR,URINE STRAW (Yellow); GLUCOSE, URINE NEGATIVE (Neg); KETONES,URINE NEGATIVE (Neg); LEUKOCYTE ESTERASE ,URINE NEGATIVE (Neg); NITRITES, URINE NEGATIVE (Neg); OCCULT BLOOD,URINE NEGATIVE (Neg); PH,URINE 6.5 (4.8-8.0); PROTEIN,URINE NEGATIVE (Neg); UA COLLECTION TYPE CLN CATCH MIDSTREAM; UROBILINOGEN,URINE 0.2 E.U/dL (0.2-1.0)
== END | disposition home or self-care (01) ==
LOC: LAB 14:40
PROVIDERS: ATTEND Internal Medicine Critical Care Medicine
DX: E55.9 Vitamin D deficiency, unspecified (principal); R80.9 Proteinuria, unspecified; R82.79 Other abnormal findings on microbiological examination of urine; N39.0 Urinary tract infection, site not specified; N18.9 Chronic kidney disease, unspecified; D63.1 Anemia in chronic kidney disease; R94.4 Abnormal results of kidney function studies; D50.8 Other iron deficiency anemias
CPT/HCPCS: 36415; 80053; 81003; 82306; 82570; 83735; 84100; 84156; 85025; 87088

== ENCOUNTER → 2021-03-25 | Outpatient (CLI) | payer BC ==
[2021-03-25 10:02] LABS: CHOL/HDL RATIO 7.5 (0.00-4.99); CHOLESTEROL 241 MG/DL (0-200); HDL CHOLESTEROL 32 MG/DL (35-60); LDL CHOLESTEROL 140 MG/DL (50-100); TRIGLYCERIDES 288 MG/DL (20-135)
== END | disposition home or self-care (01) ==
LOC: LAB 08:57
PROVIDERS: ATTEND Family Medicine
DX: E78.5 Hyperlipidemia, unspecified (principal)
CPT/HCPCS: 36415; 80061

== ENCOUNTER 2021-07-23 11:09 | Outpatient (CLI) | payer BC | END 2021-07-23 23:59 | disposition home or self-care (01) | LOC: CARD DIAG 11:09 | PROVIDERS: ATTEND Internal Medicine Interventional Cardiology | DX: I34.0 Nonrheumatic mitral (valve) insufficiency (principal); I21.9 Acute myocardial infarction, unspecified; I21.A1 Myocardial infarction type 2 | CPT/HCPCS: 93306 ==

== ENCOUNTER 2021-08-16 11:56 | Inpatient (IN) | payer BC ==
[~2021-08-16] VITALS: Ht 180.3 cm; Wt 111.4 kg
[2021-08-16 12:51] LABS: BASOPHILS % (AUTO) 0.3 % (0-1); EOSINOPHILS # (AUTO) 0.1 X10'3 (0-0.9); EOSINOPHILS % (AUTO) 0.7 % (0-6); HEMATOCRIT 46.3 % (42.0-52.0); HEMOGLOBIN 15.3 g/dl (14.0-17.9); LYMPHOCYTES # (AUTO) 2.7 X10'3 (1.1-4.8); LYMPHOCYTES % (AUTO) 26.2 % (21-51); MEAN CORPUSCULAR HEMOGLOBIN 29.3 PG (27.0-31.0); MEAN CORPUSCULAR VOLUME 88.6 FL (78-98); MEAN PLATELET VOLUME 9.2 FL (7.4-10.4); MONOCYTES # (AUTO) 0.7 X10'3 (0-0.9); MONOCYTES % (AUTO) 6.7 % (2-12); NEUTROPHILS # (AUTO) 6.8 X10'3 (1.8-7.7); NEUTROPHILS % (AUTO) 66.1 % (42-75); PLATELET COUNT 182 X10'3 (140-440); RED BLOOD COUNT 5.22 X10'6 (4.70-6.10); WHITE BLOOD COUNT 10.3 X10'3 (4.5-11.0)
[2021-08-16 13:00] LABS: ALANINE AMINOTRANSFERASE 42 U/L (12-78); ALBUMIN 3.6 G/DL (3.4-5.0); ALKALINE PHOSPHATASE 55 IU/L (46-116); ANION GAP 11 (8-16); ASPARTATE AMINO TRANSFERASE 30 U/L (10-37); BLOOD UREA NITROGEN 33 MG/DL (7-18); BUN/CREATININE RATIO 14.8 (5.4-32.0); CALCIUM 8.8 MG/DL (8.5-10.1); CHLORIDE 103 MMOL/L (99-107); CREATININE 2.23 MG/DL (0.60-1.10); GLUCOSE 230 MG/DL (70-104); POTASSIUM 3.8 MMOL/L (3.5-5.1); SODIUM 139 MMOL/L (135-145); TOTAL CARBON DIOXIDE 24.9 MMOL/L (24-32); TOTAL PROTEIN 7.3 G/DL (6.4-8.2); eGFR 30 ML/MIN
[2021-08-16] MEDS ORDERED: aspirin 325mg tablet PO ONE (13:55)
[2021-08-16] MEDS ORDERED: aspirin 81mg tab.chew PO ONE (14:00)
--- NOTE | 2021-08-16 14:11 | NUR ---
Eccho tech at bedside
[2021-08-16] MEDS ORDERED: heparin 10,000 units/1 ML INJ IV ONE ×2 (14:40→15:30)
[2021-08-16] MEDS ORDERED: heparin 10,000 units/1 ML INJ IV PRN ×2 (14:40→15:30)
--- NOTE | 2021-08-16 14:45 | NUR ---
RECEIVED REPORT FROM VEE PEREZ
[2021-08-16] MEDS: heparin 25,000 UNIT/250ml bag 250 ML IV SCH (15:07)
[2021-08-16 15:29] LABS: APTT 33 SECONDS (22-32)
[2021-08-16] MEDS ORDERED: ipratropium/albuterol 3ml nebule NEB PRN (15:30)
[2021-08-16] MEDS ORDERED: HYDROcodone/acetaminophen 5mg/325mg tablet PO PRN (15:30)
[2021-08-16] MEDS ORDERED: albuterol 2.5 MG/3 ML nebule NEB PRN (15:30)
[2021-08-16] MEDS ORDERED: acetaminophen 325mg tablet PO PRN ×2 (15:30)
[2021-08-16] MEDS ORDERED: potassium CL 10mEq/100ml bag 100 ML IV PRN (15:30)
[2021-08-16] MEDS ORDERED: magnesium 2GM in 50ml NS 50 ML IV PRN (15:30)
[2021-08-16] MEDS ORDERED: heparin 25,000 UNIT/250ml bag 250 ML IV SCH (15:30)
[2021-08-16] MEDS ORDERED: magnesium hydroxide 30ml (MOM) UD suspension PO PRN (15:30)
[2021-08-16] MEDS ORDERED: mag hydrox/Alum hydrox/simeth 30ml oral suspension PO PRN (15:30)
[2021-08-16] MEDS ORDERED: HYDROcodone/acetaminophen 10/325mg tab PO PRN (15:30)
[2021-08-16] MEDS ORDERED: POTASSIUM BICARB 20meq eff tab 20 MEQ TABLET.EFF PO PRN ×2 (15:30)
[2021-08-16] MEDS ORDERED: magnesium 4gm in 100ml NS 100 ML IV PRN (15:30)
[2021-08-16] MEDS ORDERED: ondansetron/PF 4mg/2ml inj IV PRN (15:30)
--- NOTE | 2021-08-16 16:19 | NUR ---
verbal ok from dr. de paz to turn off heparin gtt for nuc med test for approx 45 min. will re-start heparin upon arrival.
--- NOTE | 2021-08-16 16:30 | NUR ---
PT RETURNED FROM NUC MED, HEPARIN GTT RE-STARTED.
--- NOTE | 2021-08-16 18:28 | NUR ---
BEDSIDE REPORT TO JAYDEN BIGGS
[2021-08-16] MEDS: docusate sod 100mg capsule PO SCH (20:00)
[2021-08-16] MEDS: losartan 50mg tablet PO SCH (20:07)
[2021-08-16 23:02] VITALS: BP 144/97
--- NOTE | 2021-08-17 00:30 | NUR ---
Pt transferred to unit via stretcher, ambulated to bed. Pt alert and oriented x4 on room air. Shortness of breath on exertion. Lungs clear. Heparin drip running at 2000units/hr. Pt endorsed headache 05/07, prn medication administered. Pt resting comfortably. Will continue to monitor.
[2021-08-17 02:00] VITALS: BP 118/68
[2021-08-17] MEDS: heparin 25,000 UNIT/250ml bag 250 ML IV SCH ×2 (04:20→06:18)
[2021-08-17 06:00] VITALS: BP 110/68
[2021-08-17] MEDS ORDERED: fenofibrate 145mg tablet PO SCH (07:30)
[2021-08-17] MEDS ORDERED: OMEGA-3/DHA/EPA/FISH OIL 1 EACH CAPSULE.DR PO SCH (08:00)
[2021-08-17] MEDS ORDERED: diltiazem CD 120mg capsule (once-daily) PO SCH (08:00)
[2021-08-17] MEDS ORDERED: furosemide 20MG tablet PO SCH (08:00)
[2021-08-17] MEDS ORDERED: cetirizine 10mg tablet PO SCH (08:00)
[2021-08-17] MEDS: docusate sod 100mg capsule PO SCH (08:59)
[2021-08-17] MEDS: losartan 50mg tablet PO SCH (09:00)
[2021-08-17 09:01] LABS: BASOPHILS % (AUTO) 0.5 % (0-1); EOSINOPHILS # (AUTO) 0.1 X10'3 (0-0.9); EOSINOPHILS % (AUTO) 0.9 % (0-6); HEMATOCRIT 44.8 % (42.0-52.0); HEMOGLOBIN 14.8 g/dl (14.0-17.9); LYMPHOCYTES % (AUTO) 31.4 % (21-51); MEAN CORPUSCULAR HEMOGLOBIN 29.3 PG (27.0-31.0); MEAN CORPUSCULAR HGB CONC 32.9 g/dL (33.0-36.5); MEAN CORPUSCULAR VOLUME 88.9 FL (78-98); MEAN PLATELET VOLUME 9.5 FL (7.4-10.4); MONOCYTES # (AUTO) 0.9 X10'3 (0-0.9); MONOCYTES % (AUTO) 9.4 % (2-12); NEUTROPHILS # (AUTO) 5.5 X10'3 (1.8-7.7); NEUTROPHILS % (AUTO) 57.8 % (42-75); PLATELET COUNT 191 X10'3 (140-440); RED BLOOD COUNT 5.04 X10'6 (4.70-6.10); RED CELL DISTRIBUTION WIDTH 14.1 % (11.5-14.5); WHITE BLOOD COUNT 9.5 X10'3 (4.5-11.0)
[2021-08-17 09:29] LABS: ALANINE AMINOTRANSFERASE 38 U/L (12-78); ALBUMIN 3.2 G/DL (3.4-5.0); ALBUMIN/GLOBULIN RATIO 0.9 (1.1-1.5); ALKALINE PHOSPHATASE 52 IU/L (46-116); ANION GAP 9 (8-16); ASPARTATE AMINO TRANSFERASE 31 U/L (10-37); BILIRUBIN,TOTAL 0.6 MG/DL (0.1-1.0); BLOOD UREA NITROGEN 27 MG/DL (7-18); BUN/CREATININE RATIO 13.6 (5.4-32.0); CALCIUM 9.2 MG/DL (8.5-10.1); CHLORIDE 103 MMOL/L (99-107); CHOL/HDL RATIO 6.1 (0.00-4.99); CHOLESTEROL 176 MG/DL (0-200); CREATININE 1.99 MG/DL (0.60-1.10); GLUCOSE 182 MG/DL (70-104); HDL CHOLESTEROL 29 MG/DL (35-60); LDL CHOLESTEROL 110 MG/DL (50-100); MAGNESIUM 2.2 MG/DL (1.5-2.4); POTASSIUM 3.8 MMOL/L (3.5-5.1); SODIUM 139 MMOL/L (135-145); TOTAL CARBON DIOXIDE 27.4 MMOL/L (24-32); TOTAL PROTEIN 6.9 G/DL (6.4-8.2); TRIGLYCERIDES 224 MG/DL (20-135); eGFR 34 ML/MIN
[2021-08-17 11:00] VITALS: BP 109/78
[2021-08-17] MEDS ORDERED: apixaban 5mg tablet PO SCH ×2 (12:00→14:30)
[2021-08-17] MEDS ORDERED: APIX5TAB3 PO ×2 (13:00)
--- NOTE | 2021-08-17 14:13 | NUR ---
Called pt's pharmacy and spoke to Pediatric Social Worker providing tech with eliquis discount code. Pt informed of this and he will send family to pick and shovel worker medicine when [facility] verifies that the medicine is ready and available for pick-up, then they will come pick him up. Addendum: 08/17/21 at 1503 by Laura Neil RN Grady Saenz at [facility] pt's eliquis will have a $0.00 copay for the first 30 days then pt will refill thru "[employer]" thru his work insurance. Dany at [facility] has authorized #[id number] tabs which will equal a full 30 day fill. Provided [facility] with coupon codes from [employer].
[2021-08-17 15:00] VITALS: BP 118/78
--- NOTE | 2021-08-17 15:38 | NUR ---
Pt discharging on family Danny to fruit or nut picker. Addendum: 08/17/21 at 1539 by Laura Neil RN Amended: Links added.
--- NOTE | 2021-08-17 16:47 | NUR ---
Pt discharged home in stable condition, All belongings accounted for per and patient. Pt escorted to hospital entrance via WC by Rn.
== END 2021-08-17 16:34 | disposition home or self-care (01) | DRG 175 ==
LOC: EEVIPCON 11:56 → ER 11:56 → ED HOLD 15:35 → EDBEDREQ 21:48 → PCU 3S 22:45
PROVIDERS: ADMIT Family Medicine; ATTEND Family Medicine
DX: I26.99 Other pulmonary embolism without acute cor pulmonale (principal); I21.A1 Myocardial infarction type 2; N17.0 Acute kidney failure with tubular necrosis; I82.431 Acute embolism and thrombosis of right popliteal vein; E78.00 Pure hypercholesterolemia, unspecified; E78.5 Hyperlipidemia, unspecified; I12.9 Hypertensive chronic kidney disease with stage 1 through stage 4 chronic kidney disease, or unspecified chronic kidney disease; N18.9 Chronic kidney disease, unspecified; Z83.3 Family history of diabetes mellitus; Z86.711 Personal history of pulmonary embolism; Z86.718 Personal history of other venous thrombosis and embolism; Z88.8 Allergy status to other drugs, medicaments and biological substances; Z79.899 Other long term (current) drug therapy; Z82.49 Family history of ischemic heart disease and other diseases of the circulatory system; Z80.41 Family history of malignant neoplasm of ovary
CPT/HCPCS: 36415; 71045; 78582; 80053; 80061; 83735; 83880; 84484; 85025; 85730; 87081; 93005; 93308; 93970; 94760; 99285; A9539; A9540; G0378; J1644

== ENCOUNTER 2021-08-20 08:35 | Outpatient (CLI) | payer BC ==
[2021-08-20 09:15] LABS: CLARITY,URINE CLEAR (Clear); COLOR,URINE YELLOW (Yellow); GLUCOSE, URINE NEGATIVE (Neg); KETONES,URINE NEGATIVE (Neg); LEUKOCYTE ESTERASE ,URINE NEGATIVE (Neg); NITRITES, URINE NEGATIVE (Neg); OCCULT BLOOD,URINE TRACE-INTACT (Neg); PROTEIN,URINE TRACE mg/dl (Neg); UROBILINOGEN,URINE 0.2 E.U/dL (0.2-1.0)
[2021-08-20 09:17] LABS: BASOPHILS # (AUTO) 0.1 X10'3 (0-0.2); BASOPHILS % (AUTO) 0.7 % (0-1); EOSINOPHILS # (AUTO) 0.1 X10'3 (0-0.9); EOSINOPHILS % (AUTO) 1.3 % (0-6); HEMATOCRIT 46.9 % (42.0-52.0); HEMOGLOBIN 15.5 g/dl (14.0-17.9); LYMPHOCYTES # (AUTO) 2.7 X10'3 (1.1-4.8); LYMPHOCYTES % (AUTO) 33.3 % (21-51); MEAN CORPUSCULAR HEMOGLOBIN 29.4 PG (27.0-31.0); MEAN CORPUSCULAR HGB CONC 33.1 g/dL (33.0-36.5); MEAN CORPUSCULAR VOLUME 88.8 FL (78-98); MEAN PLATELET VOLUME 9.3 FL (7.4-10.4); MONOCYTES # (AUTO) 0.7 X10'3 (0-0.9); MONOCYTES % (AUTO) 9.1 % (2-12); NEUTROPHILS # (AUTO) 4.6 X10'3 (1.8-7.7); NEUTROPHILS % (AUTO) 55.6 % (42-75); PLATELET COUNT 269 X10'3 (140-440); RED BLOOD COUNT 5.28 X10'6 (4.70-6.10); WHITE BLOOD COUNT 8.2 X10'3 (4.5-11.0)
[2021-08-20 09:20] LABS: UA COLLECTION TYPE CLN CATCH MIDSTREAM
[2021-08-20 09:22] LABS: BACTERIA,URINE NONE SEEN /HPF (Neg); MUCUS STRANDS NONE SEEN /LPF (Neg); RBC,URINE NONE SEEN /HPF (0-2); SQUAMOUS EPITHELIAL CELL,UR FEW /LPF (FEW); WBC,URINE NONE SEEN /HPF (0-4)
[2021-08-20 09:36] LABS: ALANINE AMINOTRANSFERASE 56 U/L (12-78); ALBUMIN 3.5 G/DL (3.4-5.0); ALBUMIN/GLOBULIN RATIO 0.9 (1.1-1.5); ALKALINE PHOSPHATASE 54 IU/L (46-116); ASPARTATE AMINO TRANSFERASE 33 U/L (10-37); BILIRUBIN,TOTAL 0.7 MG/DL (0.1-1.0); BLOOD UREA NITROGEN 37 MG/DL (7-18); BUN/CREATININE RATIO 15.6 (5.4-32.0); CALCIUM 9.6 MG/DL (8.5-10.1); CHLORIDE 102 MMOL/L (99-107); CHOL/HDL RATIO 8.9 (0.00-4.99); CHOLESTEROL 178 MG/DL (0-200); CREATININE 2.37 MG/DL (0.60-1.10); GLUCOSE 112 MG/DL (70-104); HDL CHOLESTEROL 20 MG/DL (35-60); LDL CHOLESTEROL 117 MG/DL (50-100); POTASSIUM 3.8 MMOL/L (3.5-5.1); SODIUM 140 MMOL/L (135-145); TOTAL PROTEIN 7.6 G/DL (6.4-8.2); TRIGLYCERIDES 254 MG/DL (20-135); eGFR 28 ML/MIN
[2021-08-20 09:38] LABS: ANION GAP 10 (8-16); TOTAL CARBON DIOXIDE 28.3 MMOL/L (24-32)
[2021-08-21 11:12] LABS: % FREE PSA 35.7 % (.); PSA, FREE 0.25 ng/mL
== END 2021-08-20 23:59 | disposition home or self-care (01) ==
LOC: LAB 08:35
PROVIDERS: ATTEND Family Medicine
DX: Z00.01 Encounter for general adult medical examination with abnormal findings (principal); Z12.5 Encounter for screening for malignant neoplasm of prostate; I10 Essential (primary) hypertension
CPT/HCPCS: 36415; 80053; 80061; 81001; 84153; 84154; 84402; 84403; 85025

== ENCOUNTER 2021-09-21 08:41 | Outpatient (CLI) | payer BC | END 2021-09-21 23:59 | disposition home or self-care (01) | LOC: RAD 08:41 | PROVIDERS: ATTEND Physician Assistant | DX: K80.20 Calculus of gallbladder without cholecystitis without obstruction (principal); N28.1 Cyst of kidney, acquired | CPT/HCPCS: 76700 ==

== ENCOUNTER 2022-02-11 09:00 | Outpatient (CLI) | payer BC ==
[~2022-02-11 09:00] MED LIST changes: -OLME40TA13 PO; +OLME40TA70 PO
[2022-02-11 09:55] LABS: BASOPHILS % (AUTO) 0.5 % (0-1); EOSINOPHILS # (AUTO) 0.1 X10'3 (0-0.9); EOSINOPHILS % (AUTO) 1.4 % (0-6); HEMATOCRIT 47.4 % (42.0-52.0); HEMOGLOBIN 15.8 g/dl (14.0-17.9); LYMPHOCYTES # (AUTO) 1.8 X10'3 (1.1-4.8); LYMPHOCYTES % (AUTO) 44.9 % (21-51); MEAN CORPUSCULAR HGB CONC 33.3 g/dL (33.0-36.5); MEAN CORPUSCULAR VOLUME 90.2 FL (78-98); MEAN PLATELET VOLUME 8.9 FL (7.4-10.4); MONOCYTES # (AUTO) 0.4 X10'3 (0-0.9); MONOCYTES % (AUTO) 9.2 % (2-12); NEUTROPHILS # (AUTO) 1.8 X10'3 (1.8-7.7); PLATELET COUNT 221 X10'3 (140-440); RED BLOOD COUNT 5.26 X10'6 (4.70-6.10); RED CELL DISTRIBUTION WIDTH 13.9 % (11.5-14.5)
[2022-02-11 10:05] LABS: ALBUMIN 3.9 G/DL (3.4-5.0); ANION GAP 8 (8-16); BLOOD UREA NITROGEN 24 MG/DL (7-18); BUN/CREATININE RATIO 14.8 (5.4-32.0); CALCIUM 9.5 MG/DL (8.5-10.1); CHLORIDE 106 MMOL/L (99-107); CREATININE 1.62 MG/DL (0.60-1.10); GLUCOSE 106 MG/DL (70-104); PHOSPHORUS 2.8 MG/DL (2.3-4.5); POTASSIUM 4.1 MMOL/L (3.5-5.1); SODIUM 144 MMOL/L (135-145); TOTAL CARBON DIOXIDE 30.4 MMOL/L (24-32); eGFR 44 ML/MIN
[2022-02-11 10:30] LABS: TOTAL PROTEIN,URINE RANDOM 9.7 MG/DL; UA PROTEIN/CREATININE RATIO 0.12 mg/mg Cr (0-0.16)
== END 2022-02-11 23:59 | disposition home or self-care (01) ==
LOC: LAB 09:00
PROVIDERS: ATTEND Nurse Practitioner Adult Health
DX: N18.30 Chronic kidney disease, stage 3 unspecified (principal); D63.1 Anemia in chronic kidney disease; R94.4 Abnormal results of kidney function studies; R80.9 Proteinuria, unspecified; E83.52 Hypercalcemia; E83.30 Disorder of phosphorus metabolism, unspecified
CPT/HCPCS: 36415; 80069; 82306; 82570; 83970; 84156; 85025

== ENCOUNTER 2022-03-23 08:49 | Outpatient (CLI) | payer BC | END 2022-03-23 23:59 | disposition home or self-care (01) | LOC: RAD 08:49 | PROVIDERS: ATTEND Nurse Practitioner Adult Health | DX: N18.30 Chronic kidney disease, stage 3 unspecified (principal); N28.1 Cyst of kidney, acquired; N26.1 Atrophy of kidney (terminal); N32.89 Other specified disorders of bladder | CPT/HCPCS: 76770 ==

== ENCOUNTER 2022-06-16 08:29 | Outpatient (CLI) | payer BC | END 2022-06-16 23:59 | disposition home or self-care (01) | LOC: RAD 08:29 | PROVIDERS: ATTEND Physician Assistant | DX: K80.20 Calculus of gallbladder without cholecystitis without obstruction (principal); N26.1 Atrophy of kidney (terminal); N20.1 Calculus of ureter; K40.90 Unilateral inguinal hernia, without obstruction or gangrene, not specified as recurrent; R10.84 Generalized abdominal pain; R07.89 Other chest pain | CPT/HCPCS: 71046; 74176 ==

== ENCOUNTER 2022-08-16 08:53 | Outpatient (CLI) | payer BC ==
[2022-08-16 09:42] LABS: BASOPHILS % (AUTO) 0.5 % (0-1); EOSINOPHILS # (AUTO) 0.1 X10'3 (0-0.9); EOSINOPHILS % (AUTO) 1.1 % (0-6); HEMATOCRIT 47.5 % (42.0-52.0); HEMOGLOBIN 16.1 g/dl (14.0-17.9); LYMPHOCYTES # (AUTO) 2.6 X10'3 (1.1-4.8); LYMPHOCYTES % (AUTO) 38.3 % (21-51); MEAN CORPUSCULAR HEMOGLOBIN 30.8 PG (27.0-31.0); MEAN CORPUSCULAR VOLUME 90.6 FL (78-98); MEAN PLATELET VOLUME 8.2 FL (7.4-10.4); MONOCYTES # (AUTO) 0.4 X10'3 (0-0.9); MONOCYTES % (AUTO) 6.3 % (2-12); NEUTROPHILS # (AUTO) 3.7 X10'3 (1.8-7.7); NEUTROPHILS % (AUTO) 53.8 % (42-75); PLATELET COUNT 225 X10'3 (140-440); RED BLOOD COUNT 5.24 X10'6 (4.70-6.10); RED CELL DISTRIBUTION WIDTH 14.3 % (11.5-14.5); WHITE BLOOD COUNT 6.8 X10'3 (4.5-11.0)
[2022-08-16 10:03] LABS: ALBUMIN 4.2 G/DL (3.4-5.0); ANION GAP 9 (8-16); BLOOD UREA NITROGEN 26 MG/DL (7-18); BUN/CREATININE RATIO 13.3 (10.0-20.0); CALCIUM 9.4 MG/DL (8.5-10.1); CHLORIDE 104 MMOL/L (99-107); CREATININE 1.96 MG/DL (0.60-1.10); GLUCOSE 124 MG/DL (70-104); PHOSPHORUS 3.2 MG/DL (2.3-4.5); POTASSIUM 3.5 MMOL/L (3.5-5.1); SODIUM 143 MMOL/L (135-145); TOTAL CARBON DIOXIDE 30.4 MMOL/L (24-32); eGFR 35 ML/MIN
[2022-08-16 10:04] LABS: HEMOGLOBIN A1C 6.4 % (4.5-6.2); TOTAL PROTEIN,URINE RANDOM 6.3 MG/DL; UA PROTEIN/CREATININE RATIO 0.2 mg/mg Cr (0-0.16)
== END 2022-08-16 23:59 | disposition home or self-care (01) ==
LOC: LAB 08:53
PROVIDERS: ATTEND Nurse Practitioner Adult Health
DX: E11.22 Type 2 diabetes mellitus with diabetic chronic kidney disease (principal); N18.9 Chronic kidney disease, unspecified; R94.4 Abnormal results of kidney function studies; D63.1 Anemia in chronic kidney disease; R80.9 Proteinuria, unspecified; E83.52 Hypercalcemia; E83.30 Disorder of phosphorus metabolism, unspecified
CPT/HCPCS: 36415; 80069; 82306; 82570; 83036; 83970; 84156; 85025